=== PATIENT | male | born 1970 | race Caucasian/White ===

== ENCOUNTER → 2020-06-17 | Outpatient (CLI) | payer SELFPAY ==
[~2020-06-17] MED LIST: CATHETER FLUSH 10 ML SYR IV PRN; HOLD METFORMIN - RECEIVED CONTRAST 20 ML VIAL IV SCH; IOHEXOL 350 MG/ML 100 ML (OMNIPAQUE 350) VIAL IV ONE; LEVE500T99 PO; NS 100 ML (IVPB) BAG IV ONE
--- NOTE | 2020-06-17 17:49 | Diagnostic Imaging Report ---
PROCEDURE: CT chest with contrast only. TECHNIQUE: Multiple contiguous axial images were obtained through the chest after administration of intravenous contrast. Auto Exposure Controls were utilized during the CT exam to meet ALARA standards for radiation dose reduction. INDICATION: Tobacco abuse, cough. COMPARISON: None. FINDINGS: There is a solid suprahilar mass on the right measuring 48 x 44 mm. There is extension of lesion into the right upper lobe anteriorly and superiorly. Findings are concerning for a neoplasm. There is some volume loss of the right hemithorax. The left lung is clear. Paraseptal emphysema is noted. There is no significant pericardial effusion. No pleural effusion is seen. Visualized upper abdominal solid organs are unremarkable. Osseous structures are age appropriate. IMPRESSION: 1. Right upper lobe lung mass likely originating from the right suprahilar region concerning for neoplasm. Recommend percutaneous biopsy. 2. Not mentioned above, minimal subsegmental atelectasis in the right base. 3. Paraseptal emphysema. 4. No pleural effusion. Dictated by: Dictated on workstation # [id number]
== END ==
LOC: RAD 16:09
PROVIDERS: ATTEND Nurse Practitioner Community Health
DX: J43.8 Other emphysema (principal); R91.8 Other nonspecific abnormal finding of lung field; Z72.0 Tobacco use
CPT/HCPCS: 71260

== ENCOUNTER 2020-06-20 06:18 | Day surgery (SDC) | payer OTHER ==
[~2020-06-20] VITALS: Ht 180 cm; Wt 79.0 kg
[2020-06-20] VITALS (8 sets, daily range): BP systolic 120–142; BP diastolic 87–95
[~2020-06-20 06:18] MED LIST changes: -CATHETER FLUSH 10 ML SYR IV PRN; -HOLD METFORMIN - RECEIVED CONTRAST 20 ML VIAL IV SCH; -IOHEXOL 350 MG/ML 100 ML (OMNIPAQUE 350) VIAL IV ONE; -NS 100 ML (IVPB) BAG IV ONE
[2020-06-20] MEDS ORDERED: LIDOCAINE PF 2% 5 ML (XYLOCAINE) VIAL INJ ONE (06:19)
[2020-06-20] MEDS ORDERED: LIDOCAINE PF 1% 2 ML VIAL IJ ONE (06:19)
[2020-06-20] MEDS ORDERED: EPINEPHrine INJECTION 1 MG/ML AMP INJ ONE (06:19)
[2020-06-20] MEDS ORDERED: LIDOCAINE JELLY 2% 6 ML SYRINGE TOP ONE (06:19)
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
--- OUTSIDE RECORDS SUMMARY | 2020-06-20 06:22 | XMS REPORT | Continuity of Care Document ---
Author Organization Unknown Address Unknown Phone Unavailable Allergies Active Description Code Type Severity Reaction Onset Reported/Identified Relationship to Patient Clinical Status Yes No Allergy Information Available [id number] Drug Allergy Unknown N/A 020 Yes No Known Drug Allergies [id number] Drug Allergy Unknown N/A 06/18/2020 Medications There is no data. Problems Date Dx Coded Attending Type Code Diagnosis Diagnosed By 06/26/2008 FRANSISCA NEWTON APRN 780.39 convulsions [as sx] 06/26/2008 FRANSISCA NEWTON APRN 780.39 convulsions [as sx] 12/31/2008 FRANSISCA NEWTON APRN 345.90 EPILEPSY AND RECURRENT SEIZURES 12/31/2008 FRANSISCA NEWTON APRN 345.90 EPILEPSY AND RECURRENT SEIZURES 01/31/2009 FRANSISCA NEWTON APRN V58.69 taking high-risk medication 01/31/2009 FRANSISCA NEWTON APRN V58.69 taking high-risk medication 12/24/2010 FRANSISCA NEWTON APRN V17.49 FAM HX ASCVD (DISEASE) 12/24/2010 FRANSISCA NEWTON APRN V17.49 FAM HX ASCVD (DISEASE) 06/20/2020 FRANSISCA NEWTON Ot J43.8 OTHER EMPHYSEMA 06/20/2020 FRANSISCA NEWTON Ot R91.8 OTHER NONSPECIFIC ABNORMAL FINDING OF ANNIE 06/20/2020 FRANSISCA NEWTON Ot Z72.0 TOBACCO USE Procedures Code [place] [address] ROUT INE VENIPUNCTURE 01/10/2013 73262 CMP 01/10/[id number] GF R CALC (RESULT ONLY) 01/10/2013 40949 CBC 01/10/2013 51193 DILANTIN 01/10/2013 67257 ROUT INE VENIPUNCTURE 02/08/2014 42949 LIPI D PANEL 02/09/2014 51494 CBC 02/09/20143449929 GF R CALC (RESULT ONLY) 02/09/2014 36745 CMP 02/09/2014 19589 TSH 02/09/2014 Results Test Result Range CBC - 05/30/18 10:52 WHITE BLOOD CELL COUNT 6.4 Thousand/uL 3 .8-10.8 RED BLOOD CELL COUNT 4.34 Million/uL 4.2 0-5.80 HEMOGLOBIN 13.7 g/dL 13.2-17.1 HEMATOCRIT 40.1 % 38.5-50.0 MCV 92.4 fL 80.0-100.0 MCH 31.6 pg 27.0-33.0 MCHC 34.2 g/dL 32.0-36.0 RDW 14.1 % 11.0-15.0 PLATELET COUNT 290 Thousand/uL 140-400 MPV 9.2 fL 7.5-12.5 ABSOLUTE NEUTROPHILS 3680 cells/uL 1500- 7800 ABSOLUTE LYMPHOCYTES 1741 cells/uL 850-3 900 ABSOLUTE MONOCYTES 550 cells/uL 200-950 ABSOLUTE EOSINOPHILS 358 cells/uL 15-500 ABSOLUTE BASOPHILS 70 cells/uL 0-200 NEUTROPHILS 57.5 % NRG LYMPHOCYTES 27.2 % NRG MONOCYTES 8.6 % NRG EOSINOPHILS 5.6 % NRG BASOPHILS 1.1 % NRG COVID-19 IgG ANTIBODY - 06/10/20 18:23 SARS CoV 2 AB IGG NEGATIVE NRG CMP - 06/13/20 10:20 GLUCOSE 90 mg/dL 65-99 UREA NITROGEN (BUN) 12 mg/dL 7-25 CREATININE 0.98 mg/dL 0.70-1.33 eGFR NON-AFR. BANGLADESHI 89 mL/min/1.73m2 > OR = 60 eGFR 103 mL/min/1.73m2 > OR = 60 BUN/CREATININE RATIO NOT APPLICABLE (calc) 6-22 SODIUM 136 mmol/L 135-146 POTASSIUM 4.4 mmol/L 3.5-5.3 CHLORIDE 98 mmol/L 98-110 CARBON DIOXIDE 26 mmol/L 20-32 CALCIUM 9.6 mg/dL 8.6-10.3 PROTEIN, TOTAL 7.9 g/dL 6.1-8.1 ALBUMIN 4.0 g/dL 3.6-5.1 GLOBULIN 3.9 g/dL (calc) 1.9-3.7 ALBUMIN/GLOBULIN RATIO 1.0 (calc) 1.0-2. 5 BILIRUBIN, TOTAL 0.5 mg/dL 0.2-1.2 ALKALINE PHOSPHATASE 80 U/L 35-144 AST 12 U/L 10-35 ALT 9 U/L 9-46 CBC - 06/13/20 10:20 WHITE BLOOD CELL COUNT 12.4 Thousand/uL 3.8-10.8 RED BLOOD CELL COUNT 4.68 Million/uL 4.2 0-5.80 HEMOGLOBIN 13.3 g/dL 13.2-17.1 HEMATOCRIT 41.6 % 38.5-50.0 MCV 88.9 fL 80.0-100.0 MCH 28.4 pg 27.0-33.0 MCHC 32.0 g/dL 32.0-36.0 RDW 13.2 % 11.0-15.0 PLATELET COUNT 447 Thousand/uL 140-400 MPV 8.8 fL 7.5-12.5 ABSOLUTE NEUTROPHILS 9821 cells/uL 1500- 7800 ABSOLUTE LYMPHOCYTES 1364 cells/uL 850-3 900 ABSOLUTE MONOCYTES 893 cells/uL 200-950 ABSOLUTE EOSINOPHILS 260 cells/uL 15-500 ABSOLUTE BASOPHILS 62 cells/uL 0-200 NEUTROPHILS 79.2 % NRG LYMPHOCYTES 11.0 % NRG MONOCYTES 7.2 % NRG EOSINOPHILS 2.1 % NRG BASOPHILS 0.5 % NRG CRP - 06/13/20 10:20 C-REACTIVE PROTEIN 15.9 mg/L <8.0 Encounters ACCT No. Visit Date/Time Discharge Status Pt. Type Provider Facility Loc./Unit Complaint [id number] 02/08/2014 16:21:00 02/08/2014 23:59: 59 CLS Outpatient FRANSISCA NEWTON APRN [id number] 01/10/2013 13:44:00 01/10/2013 23:59: 59 CLS Outpatient FRANSISCA NEWTON APRN [id number] 06/13/2020 10:20:00 06/13/2020 23:59:5 9 CLS Outpatient FRANSISCA NEWTON APRN [facility] [id number] 06/13/2020 10:20:00 Document Registration [id number] 06/10/2020 16:20:00 Document Registration [id number] 05/30/2018 10:20:00 Document Registration [id number] 06/19/2020 05:33:00 020 10:43:00 DIS Outpatient MENDOZA NASSAR DO Via [facility] PREOP COUGH, DYSPNEA [id number] 06/25/2020 10:30:00 P EN Preadmit ROGE LOPEZ APRN Via [facility] RAD COUGH,DYSPNEA,HEMOPTYSIS,JONATHAN G MASS [id number] 06/20/2020 07:30:00 P EN Preadmit MENDOZA NASSAR DO Via [facility] ENDO COUGH,DYSPNEA [id number] 06/19/2020 06:50:[address] Outpatient MENDOZA NASSAR DO Via [facility] LABNPT [id number] 06/17/2020 16:09:[address] Outpatient FRANSISCA NEWTON Via [facility] RAD ABN CHEST XRAY
--- OUTSIDE RECORDS SUMMARY | 2020-06-20 06:22 | XMS REPORT ---
Author Author Gigi NEWTON Organization [facility] Address [address] [place] [address] Care Team Providers Care Makeup Artistry Instructor Name Role Phone FRANSISCA NEWTON Unavailable PROBLEMS Unknown Problems ALLERGIES No Information ENCOUNTERS Encounter Location Date Diagnosis [facility] [address] [facility] [id number] [address] [place] [address] 15 Feb, 2020 Seizures R56.9 and Viral ill ness B34.9 [place] [address] [facility] [id number] [address] [place] [address] Feb, [address] [id number] [address] May, [place] [address] [facility] [id number] [address] [place] [address] May, Unspecified convulsions R56. 9 ; High risk medication use Z79.899 and Lipid screening Z13.220 [place] [address] [facility] [id number] [address] [place] [address] Apr, [place] [address] [facility] [id number] [address] [place] [address] Aug, Unspecified convulsions R56. 9 [facility] [address] [facility] [id number] [address] [place] [address] Apr, [place] [address] [facility] [id number] [address] [place] [address] Jun, Seizures 780.39 and Back tanvi n 724.5 [place] [address] [facility] [id number] [address] [place] [address] Jun, Seizures 780.39 and Back tanvi n 724.5 [facility] [address] [id number] [address] [place] [address], [place] [address] Apr, Seizure 780.39 [facility] [address] [id number] [address] [place] [address], [place] [address] Feb, [facility] [address] [id number] [address] [place] [address], [place] [address] Feb, [facility] [address] [id number] [address] [place] [address], [place] [address] Feb, [facility] [address] [id number] [address] [place] [address], [place] [address] Feb, [facility] [address] [id number] [address] [place] [address], [place] [address] Feb, [facility] [address] [id number] [address] [place] [address], [place] [address] Feb, [facility] [address] [id number] [address] [place] [address], [place] [address] Feb, [facility] [address] [id number] [address] [place] [address], [place] [address] Jan, [facility] [address] [id number] [address] [place] [address], [place] [address] Jan, [facility] [address] [id number] [address] [place] [address], [place] [address] Nov, [facility] [address] [id number] [address] [place] [address], [place] [address] Nov, [facility] [address] [id number] [address] [place] [address], [place] [address] Feb, [facility] [address] [id number] [address] [place] [address], [place] [address] Jan, [facility] [address] [id number] [address] [place] [address], [place] [address] Jan, [facility] [address] [id number] [address] [place] [address] Apr, [facility] [address] [facility] [id number] [address] [place] [address] Dec, [facility] [address] [facility] [id number] [address] [place] [address] Nov, [facility] [address] [facility] [id number] [address] [place] [address] Nov, [facility] [address] [facility] [id number] [address] [place] [address] Nov, [facility] [address] [facility] [id number] [address] [place] [address] Dec, IMMUNIZATIONS No Known Immunizations SOCIAL HISTORY [...]
--- OUTSIDE RECORDS SUMMARY | 2020-06-20 06:22 | XMS REPORT ---
Author Author Gigi NEWTON [facility] eClinical[employer] Address Unknown Phone Unavailable Care Team Providers Care Retread Supervisor Name Role Phone FRANSISCA NEWTON CP Unavailable Allergies No Known Allergies Problems Problem Type Condition ICD-9 Code Onset Dates Condition Statu s Assessment Back pain 724.5 Active Assessment Seizures 780.39 Active Medications No Known Medications Procedures Procedure Coding System Code Date LIPID PANEL CPT-4 89573 Jun 25, 2015 COMPREHEN METABOLIC PANEL CPT-4 78837 Jun COMPLETE CBC W/AUTO DIFF WBC CPT-4 54407 Jun 25, 2015 X-RAY EXAM OF LOWER SPINE CPT-4 81809 Jun VENIPUNCT, ROUTINE* CPT-4 44670 Jun 25, 2015 Results Name Result Date Reference Range Unit Abnormali ty Flag ROUTINE VENIPUNCTURE CBC Summary Purpose eClinicalWorks Submission
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
--- OUTSIDE RECORDS SUMMARY | 2020-06-20 06:22 | XMS REPORT ---
Author Author Gigi NEWTON [facility] eClinicalWorks Address Unknown Phone Unavailable Care Team Providers Care Manager Lan Name Role Phone FRANSISCA NEWTON CP Unavailable Allergies, Adverse Reactions, Alerts Substance Reaction Event Type N.K.D.A. Info Not Available Non Drug Allergy Problems Problem Type Condition ICD-9 Code Onset Dates Condition Statu s Assessment Back pain 724.5 Active Assessment Seizures 780.39 Active Medications Medication Code System Code Instructions Start Date End Date Status Dosage Cristine [facility] [address]-17 500 MG Orally every 12 hrs Jun 24, 2015 1 tablet Procedures Procedure Coding System Code Date Office Visit, Est Pt., Level 3 CPT-4 34720 A 2014 Vital Signs Date/Time: Jun 24, 2015 Temperature 98.4 F Weight 162.2 lbs Height 73 in BMI 21.40 Index Blood Pressure Diastolic 82 mmHg Blood Pressure Systolic 108 mmHg Cardiac Monitoring Heart Rate 76 bpm Results No Known Results Summary Purpose eClinicalWorks Submission
--- OUTSIDE RECORDS SUMMARY | 2020-06-20 06:22 | XMS REPORT ---
Author Author Gigi NEWTON [facility] eClinicalWorks Address Unknown Phone Unavailable Care Team Providers Care Anesthesiology Teacher Name Role Phone FRANSISCA NEWTON CP Unavailable Allergies, Adverse Reactions, Alerts Substance Reaction Event Type N.K.D.A. Info Not Available Non Drug Allergy Problems Problem Type Condition Code Onset Dates Condition Statu s Assessment Unspecified convulsions R56.9 Acti ve Medications Medication Code System Code Instructions Start Date End Date Status Dosage Keppra [facility][NOTE 3] [address]-81 500 MG Orally every 12 hrs 1 tablet Procedures Procedure Coding System Code Date Office Visit, Est Pt., Level 2 CPT-[address] 2015 Vital Signs Date/Time: Aug 20, 2016 Cardiac Monitoring Heart Rate 70 bpm Weight 175 lbs Height 73 in BMI 23.09 Index Blood Pressure Diastolic 72 mmHg Blood Pressure Systolic 112 mmHg Results No Known Results Summary Purpose eClinicalWorks Submission
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
[2020-06-20] MEDS ORDERED: LACTATED RINGERS 1,000 ML IV STA (06:31)
[2020-06-20] MEDS ORDERED: LACTATED RINGERS 1,000 ML IV PRN (06:31)
[2020-06-20] MEDS ORDERED: SEVOFLURANE (ULTANE) 15 ML INHAL SOLN ONE ×2 (06:32→07:48)
[2020-06-20] MEDS ORDERED: LACTATED RINGERS 1,000 ML IV ONE (06:32)
[2020-06-20] MEDS ORDERED: fentaNYL INJECTION 100 MCG/2 ML AMP ONE (06:33)
[2020-06-20] MEDS ORDERED: LIDOCAINE PF 2% 5 ML (XYLOCAINE) VIAL ONE (06:33)
[2020-06-20] MEDS ORDERED: GLYCOPYRROLATE 0.2 MG/ML (ROBINUL) 2 ML VIAL ONE (06:33)
[2020-06-20] MEDS ORDERED: MIDAZOLAM 2 MG/2 ML (VERSED) VIAL ONE (06:33)
[2020-06-20] MEDS ORDERED: proPOfol 200 MG/20 ML (DIPRIVAN) VIAL IV ONE (06:33)
[2020-06-20] MEDS ORDERED: ONDANSETRON 4 MG/2 ML (SDV) Z0FRAN ONE (06:34)
[2020-06-20] MEDS ORDERED: ROCURONIUM 10 MG/ML 5 ML SYRINGE IV ONE (06:34)
[2020-06-20] MEDS ORDERED: NEOSTIGMINE 3 MG/3 ML VIAL ONE (06:34)
--- NOTE | 2020-06-20 07:25 | Progress Note-Pre Operative ---
Pre-Operative Progress Note H&P Reviewed The H&P was reviewed, patient examined and no changes noted. Date H&P Reviewed: Jun 20, 2020 Pre-Operative Diagnosis: MENDOZA Metzger DO Jun 20, 2020 07:25
--- NOTE | 2020-06-20 08:08 | Pulmonary Procedures ---
Pulmonary Procedures Date of Procedure Date of Service: Jun 20, 2020 Bronch Bronchoscopy with Fleuoscopy, Bilateral wash, brush of nanda, RUL BAL, transbronchial brush and transbronchial endobronchial forcep bx of RUL. EBUS with bx of station 10R lymph nodes Preop DX: mediastinal lymphadenopathy PostOP DX: same with endobronchial mass RUL pictures taken Complications: None Pt was sedated per anesthesia. Bronchoscopy was advanced through the ED tube and an anatomical undertaken down to the segmental bronchi bilaterally. RUL endobronchial lesions noted. Bronchoscopy with Fleuoscopy, Bilateral wash, brush of nanda, RUL BAL, transbronchial brush and transbronchial endobronchial forcep bx of RUL. EBUS with bx of station 10R lymph nodes were sampled via needle bx under US guidance. Pt tolerated procedure well. No complications noted. MENDOZA NASSAR DO Jun 20, 2020 08:08
--- NOTE | 2020-06-20 08:13 | Anesthesia-General Post-Op ---
General Patient Condition Mental Status/LOC: Same as Preop Cardiovascular: Satisfactory Nausea/Vomiting: Absent Respiratory: Satisfactory Pain: Controlled Complications: Absent Post Op Complications Complications None Follow Up Care/Instructions Patient Instructions None needed. Anesthesia/Patient Condition Patient Condition Patient is doing well, no complaints, stable vital signs, no apparent adverse anesthesia problems. No complications reported per nursing. BRIANNE AGUILA CRNA Jun 20, 2020 08:13
--- NOTE | 2020-06-20 08:47 | Diagnostic Imaging Report ---
INDICATION: Status post bronchoscopy. A right hilar mass with right upper lobe collapse is again noted and similar to CT 3 days earlier. No pneumothorax is identified, status post bronchoscopy. No effusion is seen. IMPRESSION: No evidence of pneumothorax, status post bronchoscopy. Dictated by: Dictated on workstation # [id number]
--- NOTE | 2020-06-20 08:50 | Diagnostic Imaging Report ---
Indication: Bronchoscopy IMPRESSION: 7.1 seconds fluoroscopy and 2 intraoperative digital images were used by Dr. Mcclellan in surgery during bronchoscopy. Dictated by: Dictated on workstation # [id number]
== END 2020-06-20 09:25 | disposition home or self-care (01) ==
LOC: ENDO 06:18
PROVIDERS: ATTEND Internal Medicine Critical Care Medicine
DX: C34.11 Malignant neoplasm of upper lobe, right bronchus or lung (principal); C77.1 Secondary and unspecified malignant neoplasm of intrathoracic lymph nodes; G40.909 Epilepsy, unspecified, not intractable, without status epilepticus; Z87.891 Personal history of nicotine dependence; Z79.899 Other long term (current) drug therapy
CPT/HCPCS: 71045; 76000; 87015; 87070; 87101; 87116; 87205; 87206; 88112; 88173; 88305; 88312; 88342; 88344; 94640

== ENCOUNTER → 2020-06-25 | Outpatient (CLI) | payer SELFPAY ==
--- NOTE | 2020-06-25 14:39 | Diagnostic Imaging Report ---
INDICATION: Right upper lobe lung mass. TECHNIQUE: Serum blood glucose level at the time of injection was 94 mg/dL. Patient was administered 15.5 mCi F-18 FDG intravenously in the left forearm and PET imaging was performed from the top of skull to mid thighs. Noncontrast CT was also performed for attenuation correction and anatomic correlation. COMPARISON: No prior PET/CT studies are available for comparison. Comparison is made with recent CT chest from 06/17/2020. FINDINGS: There is symmetric activity throughout the brain. Soft tissues of the neck are unremarkable. There is a large hypermetabolic mass arising from the right hilum measuring approximately 4.5 cm in size and demonstrates SUV max of around 20. This is contiguous with an even larger mass along the anterior right heart border which measures approximately 7.2 x 5.1 cm. This portion demonstrates SUV max approximately 22.7. There is some partial collapse of the right upper lobe. There is a small right effusion. The abdomen and pelvis demonstrate physiologic activity within the gastrointestinal and genitourinary tracts. No suspicious regions of hypermetabolism are identified. IMPRESSION: A large right hilar mass which is inseparable from a second large mass along the right heart border, perhaps in the anterior mediastinum, consistent with neoplasm. Left hilum is unremarkable. There is partial collapse of the right upper lobe as well as a small right pleural effusion. No abnormal regions in the abdomen or pelvis are identified. Dictated by: Dictated on workstation # [id number]
== END ==
LOC: RAD 08:32
PROVIDERS: ATTEND Nurse Practitioner Family
DX: J90 Pleural effusion, not elsewhere classified (principal); R91.8 Other nonspecific abnormal finding of lung field; R04.2 Hemoptysis
CPT/HCPCS: 78815; A9552

== ENCOUNTER → 2020-07-02 | Outpatient (CLI) | payer OTHER ==
[~2020-07-02] MED LIST changes: +RT-ALBUTEROL SULF 2.5 MG/3 ML PRE-MIX VIAL INH ONE
== END ==
LOC: RT 12:41
PROVIDERS: ATTEND Internal Medicine Critical Care Medicine
DX: C34.10 Malignant neoplasm of upper lobe, unspecified bronchus or lung (principal); Z20.828 Contact with and (suspected) exposure to other viral communicable diseases
CPT/HCPCS: 94060; 94726; 94729

== ENCOUNTER → 2020-07-16 | Outpatient (CLI) | payer OTHER ==
[~2020-07-16] MED LIST changes: +GADOBUTROL 7.5 MMOL/7.5 ML (GADAVIST) VIAL IV ONE; +HYDR-4226 PO; -RT-ALBUTEROL SULF 2.5 MG/3 ML PRE-MIX VIAL INH ONE
--- NOTE | 2020-07-16 10:22 | Diagnostic Imaging Report ---
CLINICAL INDICATION: Patient has lung cancer. EXAM: MRI of the brain performed without and with 7 cc of Gadavist IV contrast. Sequences include axial DWI, ADC map, axial gradient echo, axial T2, axial FLAIR, axial T1, axial T1 post IV contrast, coronal T1 fat-sat post IV contrast, and sagittal T1 post IV contrast. COMPARISON: None. FINDINGS: There is no evidence of acute cerebral infarct, intracranial hemorrhage, or gross mass effect. There is no abnormal IV contrast enhancement. Jose cisterna magna is noted. The brain parenchymal volume appears appropriate for patient's age. There are several focal areas of high T2 signal white matter changes involving the white matter of both cerebral hemispheres, likely representing mild chronic small vessel ischemic disease. There is normal nolasco-white matter distinction. There is no significant midline shift or herniation. The [place] of [place] vascular structures show no gross abnormality as visualized. The pituitary gland, sella, and suprasellar regions are unremarkable as visualized. There is no evidence of hydrocephalus. The basal cisterns are unremarkable. The skull, extracranial soft tissue, and orbits are unremarkable. The paranasal sinuses are unremarkable. The temporal bones show no significant abnormality. IMPRESSION: Age-related brain parenchymal changes with no evidence of an acute intracranial process or metastatic disease. Dictated by: Dictated on workstation # [id number]
== END ==
LOC: RAD 08:45
PROVIDERS: ATTEND Internal Medicine Hematology & Oncology
DX: C34.11 Malignant neoplasm of upper lobe, right bronchus or lung (principal); G93.89 Other specified disorders of brain
CPT/HCPCS: 70553

== ENCOUNTER 2020-07-17 05:44 | Outpatient (CLI) | payer OTHER ==
[~2020-07-17] VITALS: Ht 185.5 cm; Wt 79.5 kg
[~2020-07-17 05:44] MED LIST changes: -GADOBUTROL 7.5 MMOL/7.5 ML (GADAVIST) VIAL IV ONE; -HYDR-4226 PO
[2020-07-18] MEDS ORDERED: HYDR-4226 PO (11:06)
== END 2020-07-17 11:44 | disposition home or self-care (01) ==
LOC: PREOP 05:44
PROVIDERS: ATTEND Surgery
DX: Z01.818 Encounter for other preprocedural examination (principal)

== ENCOUNTER 2020-07-18 09:53 | Day surgery (SDC) | payer OTHER ==
[2020-07-18] VITALS (8 sets, daily range): BP systolic 125–143; BP diastolic 86–95
[~2020-07-18] VITALS: Ht 185.5 cm; Wt 79.5 kg
[2020-07-18] MEDS ORDERED: PROPOFOL INJECTION 50 ML IV ONE (10:13)
[2020-07-18] MEDS ORDERED: MIDAZOLAM 2 MG/2 ML (VERSED) VIAL ONE (10:14)
[2020-07-18] MEDS ORDERED: 0.9% SODIUM CHLORIDE PF INJ 20 ML VIAL ONE (10:21)
[2020-07-18] MEDS ORDERED: HEParin (CENTRAL IV FLUSH) 500 UNIT/5 ML SYR ONE (10:21)
[2020-07-18] MEDS ORDERED: BUP/EPI 0.25% 1:200,000 (MARCAINE) 30 ML VIAL ONE (10:22)
--- NOTE | 2020-07-18 10:26 | Progress Note-Pre Operative ---
Pre-Operative Progress Note H&P Reviewed The H&P was reviewed, patient examined and no changes noted. Time Seen by Provider: 09:52 Date H&P Reviewed: Jul 18, 2020 Time H&P Reviewed: 09:53 Pre-Operative Diagnosis: Lung CA, Venous Insufficiency DEANNA DEGROOT DO Jul 18, 2020 10:26
[2020-07-18] MEDS ORDERED: LACTATED RINGERS 1,000 ML IV PRN (10:27)
[2020-07-18] MEDS ORDERED: ceFAZolin 2 GM IV Premixed 50 ML IV ONE (10:30)
--- NOTE | 2020-07-18 11:05 | Progress Note-Post Operative ---
Post-Operative Progess Note Surgeon (s)/Family Counselor (s) Surgeon DEANNA DEGROOT DO Family Counselor: EVERARDO Chan Pre-Operative Diagnosis Lung CA, Venous Insufficiency Post-Operative Diagnosis same Procedure & Operative Findings Date of Procedure 07/18/20 Procedure Performed/Findings PROCEDURE: [Left] subclavian port placement using ultrasound guidance. COMPLICATIONS: None. INDICATIONS: The patient is a 50 year old male [with Lung CA and venous insufficiency]. Patient understands the risks and benefits of port placement and wished to proceed with the procedure. Consent was signed on the chart. PROCEDURE: The patient was taken to the operating suite, was prepped and draped in the sterile fashion. A surgical pause was performed. Local anesthetic was infiltrated above left chest wall and towards the clavicle. Next using an 18 gauge finder needle with negative inspiration the subclavian vein was accessed on first attempt and dark nonpulsatile blood was withdrawn. The wire was inserted. Fluoroscopy assured proper placement. The needle was removed. The wire was then secured and a pocket was created. A [#11] blade scalpel was used to make an incision over the [left] chest and a stab incision at the guidewire. Cautery was used to dissect down to the pectoral fascia. A pocket was created with blunt dissection. The dilator sheath was then advanced over the wire with Seldinger technique and checked with fluoroscopy and catheter was tunneled into the pocket. The Groshong catheter was inserted through the sheath and the sheath and the Groshong wire were removed. Fluoroscopy was used to cut to length and this was then attached to the port which was then placed within the pocket. The port was then sutured in place with 3-0 Prolene. The port was then accessed without difficulty. It was then flushed with saline and then heparin. The subcutaneous tissues were then reapproximated using 3-0 Vicryl. Finally skin was close with three 4-0 undyed Monocryl subcuticular stitches. The areas were then washed and dried. Skin Affix was placed over incision. The insertion point of the neck Skin Affix was placed over the incision. The patient tolerated the procedure well without complication and was taken to recovery room in stable condition. Anesthesia Type IV sedation by [employer] Estimated Blood Loss Estimated blood loss (mL): scant Specimens/Packing Specimens Removed none DEANNA DEGROOT DO Jul 18, 2020 11:05
[2020-07-18] MEDS ORDERED: HYDR-4226 PO (11:06)
--- NOTE | 2020-07-18 11:07 | Discharge Inst-Surgical ---
Discharge Inst-Surgical Depart Medication/Instructions New, Converted or Re-Newed RX: RX Given to Pt/Family Patient Instructions Follow up Appt: Make appointment for 1 week. [phone] Instructions: No strenuous activity. May shower in 24 hours, no tub bath or soaking. Use incentive spirometer at home as directed. No Smoking Skin/Wound Care: May remove bandages in am. You need to leave the Dermabond on incision it will fall off on it's own. Symptoms to Report: Appetite Changes, Extremity Discoloration, Numbness/Tingling, Swelling Increased, Bleeding Excessive, Eyesight Changes, Pain Increased, Urine Color Leora nge, Constipation(Persistent), Fever over 101 degree F, Pain/Pressure in chest, Urinating Difficulty, Cough Up/Vomit Blood, Heart Beat Irreg/Pounding, Pain/Pressure in jaw, Cramps in feet or legs, Lightheadedness, Pain/Pressure in shoulder, Diarrhea(Persistent), Memory Changes Suddenly, Questions/Concerns, Weight gain consecutive days, Dizziness/Fainting, Nausea/Vomiting, Shortness of Breath, Weight gain over 2 pounds If questions or concerns contact your physician Or seek help at emergency department. Activity Activity as Tolerated: Yes Activity Instructions: Avoid Stress to Incision Driving Instructions: No Driving/Refer to Dr. Nesbitt Discharge Diet: No Restrictions Diet After 24 Hours: Clear Liquid if Nauseous If Any Problems/Questions/Issu: Contact Your Physician, Go to Emergency Room Skin/Wound Care Infection Signs and Symptoms: Increased Redness, Foul Odor of Wound, Increased Drainage, Skin Itchy or Has a Rash, Increased Swelling, Temperature Above 101 F Bathing Instructions: Shower Stitches/Maxwell/Dermabond Dis: Dermabond Ice Pack: Ice On and Off Site DEANNA DEGROOT DO Jul 18, 2020 11:07
[2020-07-18] MEDS ORDERED: MEPERIDINE (DEMEROL) INJ 50 MG/ML IVP ONE (11:15)
[2020-07-18] MEDS ORDERED: ONDANSETRON 4 MG/2 ML (SDV) Z0FRAN IVP PRN (11:15)
[2020-07-18] MEDS ORDERED: morphine INJ 10 MG/ML 1ML (SYR OR VIAL) IVP ONE (11:15)
--- NOTE | 2020-07-18 11:51 | Diagnostic Imaging Report ---
INDICATION: Fluoroscopy during Groshong catheter placement. Fluoroscopy was provided in the OR during port placement. 4 seconds of fluoroscopic time was utilized. 3 images were obtained demonstrating a left subclavian port with tip overlying the SVC right atrial junction. IMPRESSION: Fluoroscopy during port placement. Dictated by: Dictated on workstation # [id number]
== END 2020-07-18 12:20 | disposition home or self-care (01) ==
LOC: SDC 09:53
PROVIDERS: ATTEND Surgery
DX: C34.11 Malignant neoplasm of upper lobe, right bronchus or lung (principal); I87.2 Venous insufficiency (chronic) (peripheral); Z11.2 Encounter for screening for other bacterial diseases; F17.220 Nicotine dependence, chewing tobacco, uncomplicated; G47.33 Obstructive sleep apnea (adult) (pediatric); G40.909 Epilepsy, unspecified, not intractable, without status epilepticus; Z79.899 Other long term (current) drug therapy
CPT/HCPCS: 36561; 76000; 87081; C1788

== ENCOUNTER → 2020-09-23 | Outpatient (CLI) | payer OTHER ==
[~2020-09-23] MED LIST changes: +HOLD METFORMIN - RECEIVED CONTRAST 20 ML VIAL IV SCH; +HYDR-4226 PO; +IOHEXOL 350 MG/ML 100 ML (OMNIPAQUE 350) VIAL IV ONE; +NS 100 ML (IVPB) BAG IV ONE
--- NOTE | 2020-09-23 09:13 | Diagnostic Imaging Report ---
EXAMINATION: CT Chest with intravenous contrast. TECHNIQUE: Multiple contiguous axial images were obtained through the chest after the uneventful administration of intravenous contrast. All CT scans use one or more of the following dose optimizing techniques: automated exposure control, MA and/or KvP adjustment based on a patient size and exam type, or iterative reconstruction. HISTORY: Lung cancer. COMPARISON: 06/17/2020. FINDINGS: The right hilar mass has significantly decreased in size now measuring 2.0 x 2.0 cm, previously 4.5 x 4.9 cm. There has been reexpansion of the right upper lobe. In the medial anterior segment of the right upper lobe, a second mass has also decreased in size measuring 3.5 x 2.8 cm, previously 7.2 x 5.0 cm. The lungs are emphysematous. No new nodules or masses are seen. No pleural effusion. No pneumothorax. A juxtadiaphragmatic nodule in the left lower lobe measuring 11 mm is unchanged. There is no axillary or supraclavicular lymphadenopathy. There is no mediastinal lymphadenopathy. Left-sided portacatheter is present. Heart size is normal. There are no coronary artery calcifications. No pericardial effusion. Aorta is normal in caliber. Limited views of the upper abdomen are unremarkable. There are no suspicious osseus lesions. IMPRESSION: Marked decrease in size of the previously large two right upper lobe masses is present. There has been reexpansion of the right upper lobe. No new disease is seen. Dictated by: Dictated on workstation # [id number]
== END ==
LOC: RAD 08:45
PROVIDERS: ATTEND Internal Medicine Hematology & Oncology
DX: C34.11 Malignant neoplasm of upper lobe, right bronchus or lung (principal); Z85.118 Personal history of other malignant neoplasm of bronchus and lung
CPT/HCPCS: 71260

== ENCOUNTER 2020-09-26 08:55 | Outpatient (RCR) | payer OTHER ==
[2020-07-16 08:40] LABS: BASOPHILS # (AUTO) 0.1 10^3/uL (0.0-0.1); BASOPHILS % (AUTO) 1 % (0-10); EOSINOPHILS # (AUTO) 0.3 10^3/uL (0.0-0.3); EOSINOPHILS % (AUTO) 4 % (0-10); HEMATOCRIT 38 % (40-54); HEMOGLOBIN 12.2 G/DL (13.3-17.7); LYMPHOCYTES # (AUTO) 1.2 X 10^3 (1.0-4.0); LYMPHOCYTES % (AUTO) 13 % (12-44); MEAN CORPUSCULAR HEMOGLOBIN 29 PG (25-34); MEAN CORPUSCULAR HGB CONC 32 G/DL (32-36); MEAN CORPUSCULAR VOLUME 89 FL (80-99); MEAN PLATELET VOLUME 8.3 FL (7.4-10.4); MONOCYTES # (AUTO) 0.9 X 10^3 (0.0-1.0); MONOCYTES % (AUTO) 10 % (0-12); NEUTROPHILS # (AUTO) 6.8 X 10^3 (1.8-7.8); NEUTROPHILS % (AUTO) 73 % (42-75); PLATELET COUNT 416 10^3/uL (130-400); WHITE BLOOD COUNT 9.2 10^3/uL (4.3-11.0)
[2020-07-16 09:04] LABS: ALANINE AMINOTRANSFERASE 11 U/L (0-55); ALBUMIN 4.1 GM/DL (3.2-4.5); ALKALINE PHOSPHATASE 82 U/L (40-136); BILIRUBIN,TOTAL 0.3 MG/DL (0.1-1.0); BUN/CREATININE RATIO 15; CALCIUM 9.4 MG/DL (8.5-10.1); CARBON DIOXIDE 27 MMOL/L (21-32); CHLORIDE 104 MMOL/L (98-107); CREATININE SERUM 0.96 MG/DL (0.60-1.30); GFR ESTIMATED > 60; GLUCOSE 96 MG/DL (70-105); POTASSIUM 4.2 MMOL/L (3.6-5.0); SODIUM 139 MMOL/L (135-145)
[2020-07-29 11:49] LABS: BASOPHILS % (AUTO) 0 % (0-10); EOSINOPHILS # (AUTO) 0.2 10^3/uL (0.0-0.3); EOSINOPHILS % (AUTO) 2 % (0-10); HEMATOCRIT 41 % (40-54); HEMOGLOBIN 13.6 G/DL (13.3-17.7); LYMPHOCYTES % (AUTO) 10 % (12-44); MEAN CORPUSCULAR HEMOGLOBIN 29 PG (25-34); MEAN CORPUSCULAR HGB CONC 33 G/DL (32-36); MEAN CORPUSCULAR VOLUME 87 FL (80-99); MEAN PLATELET VOLUME 8.1 FL (7.4-10.4); MONOCYTES # (AUTO) 0.2 X 10^3 (0.0-1.0); MONOCYTES % (AUTO) 2 % (0-12); NEUTROPHILS # (AUTO) 8.7 X 10^3 (1.8-7.8); NEUTROPHILS % (AUTO) 87 % (42-75); PLATELET COUNT 458 10^3/uL (130-400)
[2020-07-29 12:03] LABS: ALANINE AMINOTRANSFERASE 28 U/L (0-55); ALBUMIN 4.3 GM/DL (3.2-4.5); ALKALINE PHOSPHATASE 79 U/L (40-136); BILIRUBIN,TOTAL 0.5 MG/DL (0.1-1.0); BUN/CREATININE RATIO 17; CALCIUM 9.8 MG/DL (8.5-10.1); CARBON DIOXIDE 25 MMOL/L (21-32); CHLORIDE 99 MMOL/L (98-107); CREATININE SERUM 0.99 MG/DL (0.60-1.30); GFR ESTIMATED > 60; GLUCOSE 96 MG/DL (70-105); POTASSIUM 4.6 MMOL/L (3.6-5.0); SODIUM 137 MMOL/L (135-145); TOTAL PROTEIN 8.1 GM/DL (6.4-8.2)
[2020-08-06 10:31] LABS: BASOPHILS % (AUTO) 0 % (0-10); EOSINOPHILS # (AUTO) 0.3 10^3/uL (0.0-0.3); EOSINOPHILS % (AUTO) 4 % (0-10); HEMATOCRIT 38 % (40-54); HEMOGLOBIN 12.1 g/dL (13.3-17.7); LYMPHOCYTES # (AUTO) 0.6 10^3/uL (1.0-4.0); LYMPHOCYTES % (AUTO) 10 % (12-44); MEAN CORPUSCULAR HEMOGLOBIN 28 pg (25-34); MEAN CORPUSCULAR HGB CONC 32 g/dL (32-36); MEAN CORPUSCULAR VOLUME 90 fL (80-99); MEAN PLATELET VOLUME 8.5 fL (9.0-12.2); MONOCYTES # (AUTO) 0.6 10^3/uL (0.0-1.0); MONOCYTES % (AUTO) 9 % (0-12); NEUTROPHILS # (AUTO) 4.6 10^3/uL (1.8-7.8); NEUTROPHILS % (AUTO) 76 % (42-75); PLATELET COUNT 194 10^3/uL (130-400); WHITE BLOOD COUNT 6.1 10^3/uL (4.3-11.0)
[2020-08-06 10:55] LABS: ALANINE AMINOTRANSFERASE 15 U/L (0-55); ALKALINE PHOSPHATASE 86 U/L (40-136); BILIRUBIN,TOTAL 0.4 MG/DL (0.1-1.0); BUN/CREATININE RATIO 16; CALCIUM 9.2 MG/DL (8.5-10.1); CARBON DIOXIDE 25 MMOL/L (21-32); CHLORIDE 103 MMOL/L (98-107); CREATININE SERUM 0.93 MG/DL (0.60-1.30); GFR ESTIMATED > 60; GLUCOSE 93 MG/DL (70-105); POTASSIUM 4.7 MMOL/L (3.6-5.0); SODIUM 138 MMOL/L (135-145); TOTAL PROTEIN 7.4 GM/DL (6.4-8.2)
[2020-08-15 08:47] LABS: BASOPHILS # (AUTO) 0.1 10^3/uL (0.0-0.1); BASOPHILS % (AUTO) 2 % (0-10); EOSINOPHILS # (AUTO) 0.3 10^3/uL (0.0-0.3); EOSINOPHILS % (AUTO) 8 % (0-10); HEMATOCRIT 35 % (40-54); HEMOGLOBIN 11.2 g/dL (13.3-17.7); LYMPHOCYTES # (AUTO) 0.5 10^3/uL (1.0-4.0); LYMPHOCYTES % (AUTO) 15 % (12-44); MEAN CORPUSCULAR HEMOGLOBIN 28 pg (25-34); MEAN CORPUSCULAR HGB CONC 32 g/dL (32-36); MEAN CORPUSCULAR VOLUME 89 fL (80-99); MEAN PLATELET VOLUME 8.1 fL (9.0-12.2); MONOCYTES # (AUTO) 0.5 10^3/uL (0.0-1.0); MONOCYTES % (AUTO) 16 % (0-12); NEUTROPHILS % (AUTO) 59 % (42-75); PLATELET COUNT 354 10^3/uL (130-400); WHITE BLOOD COUNT 3.3 10^3/uL (4.3-11.0)
[2020-08-15 09:11] LABS: ALANINE AMINOTRANSFERASE 23 U/L (0-55); ALBUMIN 3.9 GM/DL (3.2-4.5); ALKALINE PHOSPHATASE 76 U/L (40-136); BILIRUBIN,TOTAL 0.3 MG/DL (0.1-1.0); BUN/CREATININE RATIO 18; CALCIUM 8.7 MG/DL (8.5-10.1); CARBON DIOXIDE 22 MMOL/L (21-32); CHLORIDE 106 MMOL/L (98-107); CREATININE SERUM 0.95 MG/DL (0.60-1.30); GFR ESTIMATED > 60; GLUCOSE 88 MG/DL (70-105); MAGNESIUM 2.6 MG/DL (1.6-2.4); POTASSIUM 4.2 MMOL/L (3.6-5.0); SODIUM 141 MMOL/L (135-145); TOTAL PROTEIN 6.8 GM/DL (6.4-8.2)
[2020-08-20 08:56] LABS: BASOPHILS # (AUTO) 0.1 10^3/uL (0.0-0.1); BASOPHILS % (AUTO) 2 % (0-10); EOSINOPHILS # (AUTO) 0.3 10^3/uL (0.0-0.3); EOSINOPHILS % (AUTO) 8 % (0-10); HEMATOCRIT 40 % (40-54); HEMOGLOBIN 13.2 g/dL (13.3-17.7); LYMPHOCYTES # (AUTO) 0.4 10^3/uL (1.0-4.0); LYMPHOCYTES % (AUTO) 12 % (12-44); MEAN CORPUSCULAR HEMOGLOBIN 29 pg (25-34); MEAN CORPUSCULAR HGB CONC 33 g/dL (32-36); MEAN CORPUSCULAR VOLUME 89 fL (80-99); MEAN PLATELET VOLUME 8.4 fL (9.0-12.2); MONOCYTES # (AUTO) 0.2 10^3/uL (0.0-1.0); MONOCYTES % (AUTO) 6 % (0-12); NEUTROPHILS # (AUTO) 2.4 10^3/uL (1.8-7.8); NEUTROPHILS % (AUTO) 73 % (42-75); PLATELET COUNT 240 10^3/uL (130-400); WHITE BLOOD COUNT 3.3 10^3/uL (4.3-11.0)
[2020-08-20 09:18] LABS: BUN/CREATININE RATIO 15; CALCIUM 9.5 MG/DL (8.5-10.1); CARBON DIOXIDE 27 MMOL/L (21-32); CHLORIDE 101 MMOL/L (98-107); CREATININE SERUM 0.91 MG/DL (0.60-1.30); GFR ESTIMATED > 60; GLUCOSE 98 MG/DL (70-105); POTASSIUM 4.8 MMOL/L (3.6-5.0); SODIUM 139 MMOL/L (135-145)
[2020-08-29 11:23] LABS: BASOPHILS % (AUTO) 1 % (0-10); EOSINOPHILS # (AUTO) 0.2 10^3/uL (0.0-0.3); EOSINOPHILS % (AUTO) 6 % (0-10); HEMATOCRIT 37 % (40-54); LYMPHOCYTES # (AUTO) 0.4 10^3/uL (1.0-4.0); LYMPHOCYTES % (AUTO) 10 % (12-44); MEAN CORPUSCULAR HEMOGLOBIN 29 pg (25-34); MEAN CORPUSCULAR HGB CONC 33 g/dL (32-36); MEAN CORPUSCULAR VOLUME 89 fL (80-99); MEAN PLATELET VOLUME 8.8 fL (9.0-12.2); MONOCYTES # (AUTO) 0.7 10^3/uL (0.0-1.0); MONOCYTES % (AUTO) 20 % (0-12); NEUTROPHILS # (AUTO) 2.2 10^3/uL (1.8-7.8); NEUTROPHILS % (AUTO) 63 % (42-75); PLATELET COUNT 141 10^3/uL (130-400); WHITE BLOOD COUNT 3.5 10^3/uL (4.3-11.0)
[2020-08-29 11:38] LABS: BUN/CREATININE RATIO 16; CARBON DIOXIDE 22 MMOL/L (21-32); CHLORIDE 106 MMOL/L (98-107); CREATININE SERUM 0.87 MG/DL (0.60-1.30); GFR ESTIMATED > 60; GLUCOSE 82 MG/DL (70-105); POTASSIUM 4.1 MMOL/L (3.6-5.0); SODIUM 138 MMOL/L (135-145)
[2020-09-05 09:03] LABS: BASOPHILS % (AUTO) 1 % (0-10); EOSINOPHILS # (AUTO) 0.3 10^3/uL (0.0-0.3); EOSINOPHILS % (AUTO) 8 % (0-10); HEMATOCRIT 36 % (40-54); HEMOGLOBIN 11.6 g/dL (13.3-17.7); LYMPHOCYTES # (AUTO) 0.4 10^3/uL (1.0-4.0); LYMPHOCYTES % (AUTO) 10 % (12-44); MEAN CORPUSCULAR HEMOGLOBIN 29 pg (25-34); MEAN CORPUSCULAR HGB CONC 32 g/dL (32-36); MEAN CORPUSCULAR VOLUME 89 fL (80-99); MEAN PLATELET VOLUME 8.1 fL (9.0-12.2); MONOCYTES # (AUTO) 0.6 10^3/uL (0.0-1.0); MONOCYTES % (AUTO) 19 % (0-12); NEUTROPHILS # (AUTO) 2.1 10^3/uL (1.8-7.8); NEUTROPHILS % (AUTO) 62 % (42-75); PLATELET COUNT 239 10^3/uL (130-400); WHITE BLOOD COUNT 3.4 10^3/uL (4.3-11.0)
[2020-09-05 09:21] LABS: ALANINE AMINOTRANSFERASE 15 U/L (0-55); ALBUMIN 4.1 GM/DL (3.2-4.5); ALKALINE PHOSPHATASE 65 U/L (40-136); BILIRUBIN,TOTAL 0.4 MG/DL (0.1-1.0); BUN/CREATININE RATIO 18; CALCIUM 9.4 MG/DL (8.5-10.1); CARBON DIOXIDE 25 MMOL/L (21-32); CHLORIDE 104 MMOL/L (98-107); CREATININE SERUM 0.93 MG/DL (0.60-1.30); GFR ESTIMATED > 60; GLUCOSE 90 MG/DL (70-105); POTASSIUM 4.3 MMOL/L (3.6-5.0); SODIUM 141 MMOL/L (135-145); TOTAL PROTEIN 7.1 GM/DL (6.4-8.2)
[2020-09-12 10:56] LABS: BASOPHILS % (AUTO) 1 % (0-10); EOSINOPHILS # (AUTO) 0.2 10^3/uL (0.0-0.3); EOSINOPHILS % (AUTO) 7 % (0-10); HEMATOCRIT 36 % (40-54); HEMOGLOBIN 11.9 g/dL (13.3-17.7); LYMPHOCYTES # (AUTO) 0.3 10^3/uL (1.0-4.0); LYMPHOCYTES % (AUTO) 14 % (12-44); MEAN CORPUSCULAR HEMOGLOBIN 29 pg (25-34); MEAN CORPUSCULAR HGB CONC 33 g/dL (32-36); MEAN CORPUSCULAR VOLUME 88 fL (80-99); MEAN PLATELET VOLUME 8.7 fL (9.0-12.2); MONOCYTES # (AUTO) 0.2 10^3/uL (0.0-1.0); MONOCYTES % (AUTO) 11 % (0-12); NEUTROPHILS # (AUTO) 1.5 10^3/uL (1.8-7.8); NEUTROPHILS % (AUTO) 66 % (42-75); PLATELET COUNT 151 10^3/uL (130-400); WHITE BLOOD COUNT 2.2 10^3/uL (4.3-11.0)
[2020-09-12 11:15] LABS: BUN/CREATININE RATIO 15; CALCIUM 9.3 MG/DL (8.5-10.1); CARBON DIOXIDE 24 MMOL/L (21-32); CHLORIDE 103 MMOL/L (98-107); CREATININE SERUM 0.95 MG/DL (0.60-1.30); GFR ESTIMATED > 60; GLUCOSE 112 MG/DL (70-105); POTASSIUM 4.7 MMOL/L (3.6-5.0); SODIUM 138 MMOL/L (135-145)
[2020-09-19 09:32] LABS: BASOPHILS % (AUTO) 0 % (0-10); EOSINOPHILS # (AUTO) 0.1 10^3/uL (0.0-0.3); EOSINOPHILS % (AUTO) 2 % (0-10); HEMATOCRIT 34 % (40-54); HEMOGLOBIN 11.3 g/dL (13.3-17.7); LYMPHOCYTES # (AUTO) 0.4 10^3/uL (1.0-4.0); LYMPHOCYTES % (AUTO) 9 % (12-44); MEAN CORPUSCULAR HEMOGLOBIN 30 pg (25-34); MEAN CORPUSCULAR HGB CONC 33 g/dL (32-36); MEAN CORPUSCULAR VOLUME 89 fL (80-99); MEAN PLATELET VOLUME 8.5 fL (9.0-12.2); MONOCYTES # (AUTO) 0.8 10^3/uL (0.0-1.0); MONOCYTES % (AUTO) 17 % (0-12); NEUTROPHILS # (AUTO) 3.2 10^3/uL (1.8-7.8); NEUTROPHILS % (AUTO) 71 % (42-75); PLATELET COUNT 183 10^3/uL (130-400); WHITE BLOOD COUNT 4.4 10^3/uL (4.3-11.0)
[2020-09-19 09:50] LABS: BUN/CREATININE RATIO 23; CALCIUM 9.2 MG/DL (8.5-10.1); CARBON DIOXIDE 24 MMOL/L (21-32); CHLORIDE 104 MMOL/L (98-107); GFR ESTIMATED > 60; GLUCOSE 98 MG/DL (70-105); POTASSIUM 4.6 MMOL/L (3.6-5.0); SODIUM 139 MMOL/L (135-145)
[~2020-09-26] VITALS: Ht 180.3 cm; Wt 78.9 kg
[~2020-09-26 08:55] MED LIST changes: +CISPLATIN IV SCH; +CYANOCOBALAMIN INJ 1000 MCG/ML (CANCER CENTER) ONE; +FAMOTIDINE 20MG/2ML IV (CANCER CTR) IV SCH; +FOSAPREPITANT (CANCER CENTER) 150 MG in NS (IVPB) CANCER CENTER ONLY 150 ML IV SCH; -HOLD METFORMIN - RECEIVED CONTRAST 20 ML VIAL IV SCH; -IOHEXOL 350 MG/ML 100 ML (OMNIPAQUE 350) VIAL IV ONE; +MANNITOL IV SCH; -NS 100 ML (IVPB) BAG IV ONE; +NS IV 1000 ML (CANCER CTR) IV SCH; +ONDANSETRON 8 MG, DEXAMETHASONE 4 MG/NS 50 ML IVPB (Cancer Ctr) IV SCH; +PEMETREXED DISODIUM 1,000 MG in NS (IVPB) CANCER CENTER 100 ML IV SCH; +[UNRECOGNIZED DRUG - OTHER] IV SCH; +diphenhydrAMINE 25 MG TAB (BENADRYL) CANCER CENTER PO SCH
[2020-09-26 09:18] LABS: BASOPHILS % (AUTO) 1 % (0-10); EOSINOPHILS # (AUTO) 0.1 10^3/uL (0.0-0.3); EOSINOPHILS % (AUTO) 4 % (0-10); HEMATOCRIT 34 % (40-54); HEMOGLOBIN 11.6 g/dL (13.3-17.7); LYMPHOCYTES # (AUTO) 0.4 10^3/uL (1.0-4.0); LYMPHOCYTES % (AUTO) 13 % (12-44); MEAN CORPUSCULAR HEMOGLOBIN 30 pg (25-34); MEAN CORPUSCULAR HGB CONC 34 g/dL (32-36); MEAN CORPUSCULAR VOLUME 90 fL (80-99); MEAN PLATELET VOLUME 8.2 fL (9.0-12.2); MONOCYTES # (AUTO) 0.8 10^3/uL (0.0-1.0); MONOCYTES % (AUTO) 25 % (0-12); NEUTROPHILS # (AUTO) 1.7 10^3/uL (1.8-7.8); NEUTROPHILS % (AUTO) 56 % (42-75); PLATELET COUNT 250 10^3/uL (130-400); WHITE BLOOD COUNT 3.1 10^3/uL (4.3-11.0)
[2020-09-26 09:40] LABS: ALANINE AMINOTRANSFERASE 19 U/L (0-55); ALBUMIN 4.2 GM/DL (3.2-4.5); ALKALINE PHOSPHATASE 69 U/L (40-136); BILIRUBIN,TOTAL 0.3 MG/DL (0.1-1.0); BUN/CREATININE RATIO 15; CALCIUM 9.1 MG/DL (8.5-10.1); CARBON DIOXIDE 25 MMOL/L (21-32); CHLORIDE 104 MMOL/L (98-107); CREATININE SERUM 0.87 MG/DL (0.60-1.30); GFR ESTIMATED > 60; GLUCOSE 89 MG/DL (70-105); POTASSIUM 4.2 MMOL/L (3.6-5.0); SODIUM 139 MMOL/L (135-145)
== END 2020-10-07 | disposition home or self-care (01) ==
LOC: ONC 08:55
PROVIDERS: ATTEND Internal Medicine Hematology & Oncology
DX: C34.11 Malignant neoplasm of upper lobe, right bronchus or lung (principal); F10.11 Alcohol abuse, in remission; Z87.891 Personal history of nicotine dependence; Z86.69 Personal history of other diseases of the nervous system and sense organs
CPT/HCPCS: 36591; 77290; 77295; 77300; 77307; 77332; 77334; 77336; 77417; 77470; 80048; 80053; 82378; 83735; 85025; 96367; 96372; 96375; 96411; 96413; 99205; 99214; 99215

== ENCOUNTER 2020-10-30 12:45 | Outpatient (RCR) | payer OTHER ==
[2020-10-16 13:48] LABS: BASOPHILS # (AUTO) 0.1 10^3/uL (0.0-0.1); BASOPHILS % (AUTO) 2 % (0-10); EOSINOPHILS # (AUTO) 0.2 10^3/uL (0.0-0.3); EOSINOPHILS % (AUTO) 5 % (0-10); HEMATOCRIT 34 % (40-54); HEMOGLOBIN 11.5 g/dL (13.3-17.7); LYMPHOCYTES # (AUTO) 0.5 10^3/uL (1.0-4.0); LYMPHOCYTES % (AUTO) 14 % (12-44); MEAN CORPUSCULAR HEMOGLOBIN 31 pg (25-34); MEAN CORPUSCULAR HGB CONC 34 g/dL (32-36); MEAN CORPUSCULAR VOLUME 90 fL (80-99); MEAN PLATELET VOLUME 8.7 fL (9.0-12.2); MONOCYTES # (AUTO) 0.4 10^3/uL (0.0-1.0); MONOCYTES % (AUTO) 10 % (0-12); NEUTROPHILS # (AUTO) 2.3 10^3/uL (1.8-7.8); NEUTROPHILS % (AUTO) 69 % (42-75); PLATELET COUNT 200 10^3/uL (130-400); WHITE BLOOD COUNT 3.4 10^3/uL (4.3-11.0)
[2020-10-16 14:06] LABS: BUN/CREATININE RATIO 9; CALCIUM 9.4 MG/DL (8.5-10.1); CARBON DIOXIDE 28 MMOL/L (21-32); CHLORIDE 104 MMOL/L (98-107); CREATININE SERUM 0.92 MG/DL (0.60-1.30); GFR ESTIMATED > 60; GLUCOSE 100 MG/DL (70-105); SODIUM 139 MMOL/L (135-145)
[2020-10-23 14:25] LABS: BASOPHILS % (AUTO) 0 % (0-10); EOSINOPHILS # (AUTO) 0.2 10^3/uL (0.0-0.3); EOSINOPHILS % (AUTO) 4 % (0-10); HEMATOCRIT 35 % (40-54); HEMOGLOBIN 11.9 g/dL (13.3-17.7); LYMPHOCYTES # (AUTO) 0.5 10^3/uL (1.0-4.0); LYMPHOCYTES % (AUTO) 12 % (12-44); MEAN CORPUSCULAR HEMOGLOBIN 32 pg (25-34); MEAN CORPUSCULAR HGB CONC 34 g/dL (32-36); MEAN CORPUSCULAR VOLUME 94 fL (80-99); MEAN PLATELET VOLUME 8.4 fL (9.0-12.2); MONOCYTES # (AUTO) 0.9 10^3/uL (0.0-1.0); MONOCYTES % (AUTO) 21 % (0-12); NEUTROPHILS # (AUTO) 2.9 10^3/uL (1.8-7.8); NEUTROPHILS % (AUTO) 63 % (42-75); PLATELET COUNT 193 10^3/uL (130-400); WHITE BLOOD COUNT 4.5 10^3/uL (4.3-11.0)
[2020-10-23 14:44] LABS: ALANINE AMINOTRANSFERASE 14 U/L (0-55); ALBUMIN 4.1 GM/DL (3.2-4.5); ALKALINE PHOSPHATASE 67 U/L (40-136); BILIRUBIN,TOTAL 0.4 MG/DL (0.1-1.0); BUN/CREATININE RATIO 16; CALCIUM 9.1 MG/DL (8.5-10.1); CARBON DIOXIDE 28 MMOL/L (21-32); CHLORIDE 105 MMOL/L (98-107); CREATININE SERUM 0.97 MG/DL (0.60-1.30); GFR ESTIMATED > 60; GLUCOSE 78 MG/DL (70-105); POTASSIUM 3.9 MMOL/L (3.6-5.0); SODIUM 139 MMOL/L (135-145); TOTAL PROTEIN 7.2 GM/DL (6.4-8.2)
[2020-10-23 14:48] LABS: SMEAR SCAN COMMENT YES
[~2020-10-30 12:45] MED LIST changes: -CYANOCOBALAMIN INJ 1000 MCG/ML (CANCER CENTER) ONE
== END 2020-11-15 14:57 | disposition home or self-care (01) ==
LOC: ONC 12:45
PROVIDERS: ATTEND Internal Medicine Hematology & Oncology
DX: C34.11 Malignant neoplasm of upper lobe, right bronchus or lung (principal); K21.9 Gastro-esophageal reflux disease without esophagitis; D64.9 Anemia, unspecified; F10.11 Alcohol abuse, in remission; Z87.891 Personal history of nicotine dependence; Z86.69 Personal history of other diseases of the nervous system and sense organs
CPT/HCPCS: 80048; 80053; 82378; 85025; 96367; 96375; 96411; 96413

== ENCOUNTER 2020-11-06 15:27 | Emergency (ER) | payer OTHER ==
[~2020-11-06] VITALS: Ht 185.5 cm; Wt 81.6 kg
[~2020-11-06 15:27] MED LIST changes: -CISPLATIN IV SCH; -FAMOTIDINE 20MG/2ML IV (CANCER CTR) IV SCH; -FOSAPREPITANT (CANCER CENTER) 150 MG in NS (IVPB) CANCER CENTER ONLY 150 ML IV SCH; -MANNITOL IV SCH; -NS IV 1000 ML (CANCER CTR) IV SCH; -ONDANSETRON 8 MG, DEXAMETHASONE 4 MG/NS 50 ML IVPB (Cancer Ctr) IV SCH; -PEMETREXED DISODIUM 1,000 MG in NS (IVPB) CANCER CENTER 100 ML IV SCH; -[UNRECOGNIZED DRUG - OTHER] IV SCH; -diphenhydrAMINE 25 MG TAB (BENADRYL) CANCER CENTER PO SCH
[2020-11-06] MEDS ORDERED: NS IV 500 ML 500 ML IV ONE (15:45)
--- NOTE | 2020-11-06 15:52 | ED Upper Extremity ---
General Chief Complaint: Upper Extremity Stated Complaint: ARM/BACK PAIN Nursing Triage Note: PT TO [facility] BY [facility] WITH COMPLAINT OF RIGHT SHOULDER PAIN AND SWELLING ALONG WITH LOW BACK PAIN. STATES SWELLING STARTED TWO NIGHTS AGO. DENIES INJURY. DENIES FEVERS. Nursing Sepsis Screen: No Definite Risk Source: patient Exam Limitations: no limitations History of Present Illness Date Seen by Provider: Nov 06, 2020 Time Seen by Provider: 15:20 Initial Comments Patient presents ER by EMS from home with chief complaint of progressively swelling and pain in his right shoulder with movement. No trauma preceding this. He also had some low back pain starting a couple days ago but that has gotten better and only aggravated by lots of movement. He rates his pain as a 0 out of 10 when he is sitting still but was concerned because of the increased swelling. 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 He has not drank in over 5 years. He denies any recent motor vehicle collisions, falls, fights, trauma etc. He is not on blood thinners. He denies any recent trips to the [place], bug bites etc. earlier this week he did receive his last dose of chemotherapy related to lung cancer from Dr. GANDHI. Last oral intake was fluids sometime earlier this afternoon and food 2 days ago. Patient later recalls that he did have a fall approximately 2 days ago onto his right shoulder after being confronted with his x-rays. Allergies and Home Medications Allergies Coded Allergies: No Known Drug Allergies (Unverified , 06/18/20) Home Medications Hydrocodone/Acetaminophen 1 Each Tablet, 1 TAB PO Q6H Prescribed by: DEANNA DEGROOT on 07/18/20 1106 Levetiracetam 500 Mg Tablet, 500 MG PO BID, (Reported) Patient Home Medication List Home Medication List Reviewed: Yes Review of Systems Constitutional: No chills, No diaphoresis EENTM: No ear discharge, No ear pain Respiratory: No cough, No dyspnea on exertion Cardiovascular: No chest pain, No palpitations Gastrointestinal: No abdominal pain, No constipation, No diarrhea, No nausea Genitourinary: No discharge, No dysuria Musculoskeletal: No back pain, No joint pain All Other Systems Reviewed Negative Unless Noted: Yes Past Qwczklj-Xxybsw-Khczje Hx Patient Social History Alcohol Use: Denies Use Recreational Drug Use: No Smoking Status: Current Everyday Smoker Type Used: Cigarettes Former Smoker, Quit: May 18, 2020 2nd Hand Smoke Exposure: No Recent Foreign Travel: No Contact w/Someone Who Travel: No Recent Infectious Disease Expo: No Recent Hopitalizations: No Immunizations Up To Date Tetanus Booster (TDap): Unknown PED Vaccines UTD: Yes Seasonal Allergies Seasonal Allergies: No Past Medical History Surgeries: Yes (kidney stone, skin graft) Respiratory: Yes (cough, dyspnea, lung cancer) Currently Using CPAP: No Currently Using BIPAP: No Cardiac: No Neurological: Yes Seizure Disorder Genitourinary: Yes Kidney Stones Gastrointestinal: No Musculoskeletal: No Endocrine: No HEENT: Yes (dentures) Cancer: Yes Lung Psychosocial: No Integumentary: No Blood Disorders: No Physical Exam Vital Signs Vital Signs - First Documented 11/06/20 15:30 Temp 36.0 Pulse 112 Resp 20 B/P (MAP) 150/92 (111) Pulse Ox 97 O2 Delivery Room Air Capillary Refill : Less Than 3 Seconds Height, Weight, BMI Height: '" Weight: lbs. oz. kg; 23.00 BMI Method: General Appearance: WD/WN, mild distress HEENT: PERRL/EOMI, pharynx normal Neck: full range of motion, supple, normal inspection Cardiovascular: normal peripheral pulses, regular rate, rhythm Respiratory: lungs clear, normal breath sounds, no respiratory distress, no accessory muscle use Gastrointestinal: normal bowel sounds, non tender, soft Back: normal inspection, muscle spasm (Mild bilateral paraspinous tenderness without deformity or step-off) Shoulder: asymmetry (Right shoulder), bone tenderness (Proximal right humerus), ecchymosis (Mild axial), limited ROM (Limited external rotation and only able to abduct approximately 15 degrees right shoulder), pain, soft tissue tenderness, swelling (Significant doubling in size of the right shoulder around the glenohumeral joint) Elbow/Forearm: normal inspection, non-tender, no evidence of injury, normal ROM, Right Wrist: Yes normal inspection, Yes non-tender, Yes no evidence of injury, Yes normal ROM Hand: non-tender, no evidence of injury, normal ROM, Right Neurologic/Tendon: normal sensation, normal motor functions, normal tendon functions, responds to pain, no evidence tendon injury Neurologic/Psychiatric: no motor/sensory deficits, alert, normal mood/affect, oriented x 3 Skin: normal color, other (Right hand is cooler to touch compared to left hand) Procedures/Interventions Procedure: Closed reduction right shoulder Patient Education: Explained Benefits, Explained Risks, Pt. Ack. Understanding Agreement on procedure with pt: Yes Breath Sounds per Auscultation: Clear Heart Sounds per Auscultation: Regular Airway Exam: Mouth opens >2 fingers, Neck Full Range of Motion, Visulation of Uvula Sedation Adminstration Time: 18:09 Total Time spent in CS 31 mins 80 mg ketamine and 50 mcg of fentanyl IV x1. Patient had adequate anesthesia and analgesia with good vital signs. We did have to start 2 L as he was holding his breath initially but with some coaching he started breathing again and not require supplemental oxygen. He was able to tolerate her first attempt at reduction. Post reduction attempt x-ray was made with no improvement in his situation. He still had good radial pulse 1+ out of 4 with brisk capillary refill. We redosed him with a second dose of 80 mg ketamine for a total of 160 mg was given. When the patient was adequately sedated and good analgesia obtained we made a second attempt. More help was recruited after the second x-ray demonstrated no change in his an terior dislocated right shoulder. A third attempt was made and a third x-ray was obtained demonstrating no reduction of his right shoulder. Patient tolerated the procedure well. He awoke shortly thereafter and we explained the situation and he agreed to transfer to ER at [place], [place]. Progress/Results/Core Measures Results/Orders Lab Results Laboratory Tests Test 11/06/20 15:55 Range/Units White Blood Count 8.3 4.3-11.0 10^3/uL Red Blood Count 3.41 L 4.30-5.52 10^6/uL Hemoglobin 10.7 L 13.3-17.7 g/dL Hematocrit 32 L 40-54 % Mean Corpuscular Volume 92 80-99 fL Mean Corpuscular Hemoglobin 31 25-34 pg Mean Corpuscular Hemoglobin Concent 34 32-36 g/dL Red Cell Distribution Width 15.3 H 10.0-14.5 % Platelet Count 174 130-400 10^3/uL Mean Platelet Volume 8.8 L 9.0-12.2 fL Immature Granulocyte % (Auto) 1 % Neutrophils (%) (Auto) 77 H 42-75 % Lymphocytes (%) (Auto) 7 L 12-44 % Monocytes (%) (Auto) 15 H 0-12 % Eosinophils (%) (Auto) 1 0-10 % Basophils (%) (Auto) 1 0-10 % Neutrophils # (Auto) 6.4 1.8-7.8 10^3/uL Lymphocytes # (Auto) 0.5 L 1.0-4.0 10^3/uL Monocytes # (Auto) 1.2 H 0.0-1.0 10^3/uL Eosinophils # (Auto) 0.1 0.0-0.3 10^3/uL Basophils # (Auto) 0.1 0.0-0.1 10^3/uL Immature Granulocyte # (Auto) 0.0 0.0-0.1 10^3/uL Neutrophils % (Manual) 82 % Lymphocytes % (Manual) 7 % Monocytes % (Manual) 8 % Eosinophils % (Manual) 3 % Basophils % (Manual) 0 % Band Neutrophils 0 % Polychromasia SLIGHT Anisocytosis SLIGHT Prothrombin Time 14.2 12.2-14.7 SEC INR Comment 1.1 0.8-1.4 Activated Partial Thromboplast Time 33 24-35 SEC D-Dimer 2.51 H 0.00-0.49 UG/ML Sodium Level 135 135-145 MMOL/L Potassium Level 3.7 3.6-5.0 MMOL/L Chloride Level 102 98-107 MMOL/L Carbon Dioxide Level 25 21-32 MMOL/L Anion Gap 8 5-14 MMOL/L Blood Urea Nitrogen 24 H 7-18 MG/DL Creatinine 0.95 0.60-1.30 MG/DL Estimat Glomerular Filtration Rate > 60 BUN/Creatinine Ratio 25 Glucose Level 92 70-105 MG/DL Calcium Level 8.8 8.5-10.1 MG/DL Corrected Calcium 8.8 8.5-10.1 MG/DL Total Bilirubin 0.7 0.1-1.0 MG/DL Aspartate Amino Transf (AST/SGOT) 53 H 5-34 U/L Alanine Aminotransferase (ALT/SGPT) 23 0-55 U/L Alkaline Phosphatase 69 40-136 U/L C-Reactive Protein High Sensitivity 14.76 H 0.00-0.50 MG/DL Total Protein 7.1 6.4-8.2 GM/DL Albumin 4.0 3.2-4.5 GM/DL My Orders Orders - MARIA ESTHER [facility] Chest 1 View, Ap/Pa Only (11/06/20 15:43) Shoulder, Right, 3 Views (11/06/20 15:43) Thoracic Spine, 2 Views Only (11/06/20 15:43) Lumbar Spine - 2-3 Views (11/06/20 15:43) Ed Iv/Invasive Line Start (11/06/20 15:43) Ns Iv 500 Ml (Sodium Chloride 0.9%) (11/06/20 15:45) Cbc With Automated Diff (11/06/20 15:43) Comprehensive Metabolic Panel (11/06/20 15:43) Hs C Reactive Protein (11/06/20 15:43) Fibrin Degradation Products (11/06/20 15:43) Protime With Inr (11/06/20 15:43) Partial Thromboplastin Time (11/06/20 15:43) Manual Differential (11/06/20 15:55) Ketamine Injection (Ketalar Injection) (11/06/20 17:45) Fentanyl Injection (Sublimaze Injection (11/06/20 17:45) Shoulder, Right, 1 View (11/06/20 ) Shoulder, Right, 1 View (11/06/20 ) Shoulder, Right, 1 View (11/06/20 17:40) Medications Given in ED Vital Signs/I&O 11/07/20 00:00 Intake Total 500 ml Balance 500 ml Blood Pressure Mean: 111 Progress Progress Note : Time: 15:52 Progress Note Patient has a significant joint effusion. He says he is comfortable as long as is not moving it. Plan to get plain films of the right shoulder chest and back. Concerning because of his history of lung cancer for subclavian clot so we will get a D-dimer to help direct further imaging. Basic labs looking for inflammatory response. Diagnostic Imaging Diagonstic Imaging: Xray Plain Films/CT/US/NM/MRI: chest Comments [facility], [place] NAME: ANDREW NASSAR [facility] REC#: [id number] PT STATUS: REG ER : 1970 PHYSICIAN: MARIA ESTHER MC MD ADMIT DATE: 11/06/20/ER Signed Date of Exam:11/06/20 CHEST 1 VIEW, AP/PA ONLY EXAMINATION: Chest 1 view HISTORY: right shoulder swelling Hx Lung Ca COMPARISON: Chest radiograph 06/20/2020 FINDINGS: Heart size and pulmonary vasculature are normal. Mild patchy interstitial and airspace opacities within the right mid and lower lung. The right humerus appears dislocated from the right glenohumeral joint. There is a osseous fragment laterally which could represent a fracture of the humeral head. A left-sided Lesh-D-ytjqasgi is present. IMPRESSION: 1. Right mid and lower lung airspace opacities which could represent pneumonia in the appropriate clinical setting. 2. Findings of a right humeral head fracture and dislocation which are better seen on the dedicated shoulder radiograph of 11/06/2020. Dictated by: Dictated on workstation # [id number] Dict: 11/06/201654 Trans: 11/06/201701 [facility] [id number] Interpreted by: ELENI POLO DO Electronically signed by: ELENI POLO DO 11/06/201701 Reviewed: Reviewed by [place] Diagonstic Imaging: Xray Plain Films/CT/US/NM/MRI: other (Right shoulder) Comments [facility] [place] NAME: ANDREW NASSAR MED REC#: [id number] PT STATUS: REG ER : 1970 PHYSICIAN: MARIA ESTHER MC MD ADMIT DATE: 11/06/20/ER Signed Date of Exam:11/06/20 SHOULDER, RIGHT, 3 VIEWS EXAMINATION: Right shoulder radiographs, 3 views. COMPARISON: None. HISTORY: 50-year-old male, right shoulder pain and swelling. FINDINGS: There is a comminuted displaced multipart fracture of the right proximal humerus with medial to lateral and superior to inferior splaying of fracture fragments. The humeral head is projecting abnormally in location relative to the glenoid and is dislocated. The acromioclavicular joint is normally aligned. IMPRESSION: 1. Comminuted displaced multipart fracture of the right proximal humerus. 2. The articulating surface of the humeral head is dislocated relative to the glenoid. Dictated by: Dictated on workstation # [id number] Dict: 11/06/206 Trans: 11/06/201703 [id number] Interpreted by: FLAKITA ARELLANO MD Electronically signed by: FLAKITA ARELLANO MD 11/06/201703 Reviewed: Reviewed by Me Diagonstic Imaging: Xray Plain Films/CT/US/NM/MRI: other (Thoracolumbar spine) Comments [facility] [place] NAME: ANDREW NASSAR [facility] REC#: [id number] PT STATUS: REG ER : 1970 PHYSICIAN: MARIA ESTHER MC MD ADMIT DATE: 11/06/20/ER Signed Date of Exam:11/06/20 THORACIC SPINE, 2 VIEWS ONLY EXAMINATION: Thoracic spine radiographs, 2 views. COMPARISON: None. HISTORY: 50-year-old male, back pain. 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 There is a very mild superior endplate concavity of T11. The thoracic disc heights are fairly well preserved. There are minimal endplate degenerative changes. IMPRESSION: 1. Mild superior endplate concavity of T11 which is age indeterminate. 2. Mild disc degenerative changes of the thoracic spine. Dictated by: Dictated on workstation # [id number] Dict: 11/06/201657 Trans: 11/06/201703 [facility] [id number] Interpreted by: FLAKITA ARELLANO MD Electronically signed by: FLAKITA ARELLANO MD 11/06/201703 [facility] [place] [place] NAME: CESARIO,ANDREW Magdaleno [facility] REC#: [id number] PT STATUS: REG ER : 1970 PHYSICIAN: MARIA ESTHER MC MD ADMIT DATE: 11/06/20/ER Signed Date of Exam:11/06/20 LUMBAR SPINE - 2-3 VIEWS EXAMINATION: Lumbar spine radiographs, 3 views. COMPARISON: None. HISTORY: 50-year-old male, low back pain. 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 There is a mild superior endplate concavity of L4. There is a superior endplate concavity of L1 with very mild L1 vertebral body height loss. The facet joints are unremarkable. The disc spaces are fairly well preserved. Unremarkable appearance of the sacroiliac joints. IMPRESSION: 1. Age-indeterminate compression deformities of L4 and L1. 2. No pronounced disc height loss or facet arthropathy. Dictated by: Dictated on workstation # [id number] Dict: 11/06/20 1657 Trans: 11/06/201703 [id number] Interpreted by: FLAKITA ARELLANO MD Electronically signed by: FLAKITA ARELLANO MD 11/06/204 Reviewed: Reviewed by Me Diagonstic Imaging: Xray Plain Films/CT/US/NM/MRI: other (left ) Comments NAME: ANDREW NASSAR MED REC#: [id number] PT STATUS: REG ER : 1970 PHYSICIAN: MARIA ESTHER MC MD ADMIT DATE: 11/06/20/ER Draft Date of Exam:11/06/20 SHOULDER, RIGHT, 1 VIEW EXAM: Right shoulder radiograph EXAM DATE: 11/06/2020. COMPARISON: Multiple right shoulder radiographs of 11/06/2020. HISTORY: Right shoulder reduction attempt #3. TECHNIQUE: Single view of the right shoulder. FINDINGS: There has been mild improvement of the humeral fracture displacement now measuring 1.5 cm (previously 2.3 cm). The humeral head continues to be dislocated from the glenohumeral joint. IMPRESSION: Minimal improvement of the humeral head fracture status post reduction. Stable glenohumeral dislocation. Dictated on workstation # [id number] Dict: 11/06/201901 Trans: 11/06/201905 [facility] [id number] Interpreted by: ELENI POLO DO Electronically signed by: Reviewed: Reviewed by [place] Diagonstic Imaging: Xray Plain Films/CT/US/NM/MRI: other (right shoulder post reductionn attempt) Comments [facility] [place], [place] NAME: ANDREW NASSAR MED REC#: [id number] PT STATUS: REG ER : 1970 PHYSICIAN: MARIA ESTHER MC MD ADMIT DATE: 11/06/20/ER Draft Date of Exam:11/06/20 SHOULDER, RIGHT, 1 VIEW EXAM: Right shoulder radiograph. EXAM DATE: 11/06/2020. COMPARISON: Right shoulder radiographs of 11/06/2020. HISTORY: Right shoulder reduction. TECHNIQUE: Single view of the right shoulder. FINDINGS: The comminuted fracture of the right humeral head, as well as the right humeral head dislocation, is unchanged from prior radiographs from 11/06/2020. IMPRESSION: Stable right shoulder radiograph compared to prior images. Dictated on workstation # [id number] Dict: 11/06/201900 Trans: 11/06/201904 [facility] [id number] Interpreted by: ELENI POLO DO Electronically signed by: Reviewed: Reviewed by Me Diagonstic Imaging: Xray Plain Films/CT/US/NM/MRI: other (Right shoulder) Comments [facility] [place] NAME: ANDREW NASSAR [facility] REC#: [id number] PT STATUS: REG ER : 1970 PHYSICIAN: MARIA ESTHER MC MD ADMIT DATE: 11/06/20/ER Draft Date of Exam:11/06/20 SHOULDER, RIGHT, 1 VIEW EXAMINATION: Right shoulder 1 view. HISTORY: Postreduction. COMPARISON: Earlier the same day. FINDINGS: There is a comminuted right humeral head fracture with dislocation of the fracture fragments anterior and posterior to the glenoid fossa. IMPRESSION: Comminuted right humeral head fracture with anterior and posterior dislocation of the fracture fragments. Dictated on workstation # [id number] Dict: 11/06/201855 Trans: 11/06/201906 [facility] [id number] Interpreted by: BARRETT SCHROEDER MD Electronically signed by: Reviewed: Reviewed by Me Consults : Consulting Physician: BEN DALE MD Consults Notes Discussed the case and reviewed imaging with orthopedic surgery. He agrees with the plan to do a closed reduction in the ER and he would recommend the patient follow-up with Dr. Hart, who specializes in shoulders at [facility]. 1835: Discussed the case with Dr. Dale and since we are unable to do a closed reduction he would recommend surgical reduction probably replacement. He rec ommends we call [facility] and see if Dr. Hart or the orthopedic surgeon on-call would want the patient there tonight or follow-up in the clinic. Since this is been going on for 2 days and the patient has not required anything for pain that may be an option to follow-up in the clinic. Departure Impression Primary Impression: Shoulder fracture, right Qualified Codes: S42.91XA - Fracture of right shoulder girdle, part unspecified, initial encounter for closed fracture Additional Impressions: Anterior shoulder dislocation Qualified Codes: S43.014A - Anterior dislocation of right humerus, initial encounter Vertebral compression fracture Qualified Codes: S32.040A - Wedge compression fracture of fourth lumbar vertebra, initial encounter for closed fracture Disposition: 01 HOME, SELF-CARE Condition: Improved Transfer Transfer Reason: Exceeds level of care Time Spoke to Accepting Phy: 18:45 Transfer Progress Notes Discussed the case with Dr. Hart, orthopedic surgery at [place], [place] and he recommends we go ahead and do a trauma transfer to the ER so he can evaluate and treat. [facility] ED: Dr. Taylor accepts the patient in transfer. 1915: Transfer team is on the way with a patient and after they have delivered the patient they will turn around and take this patient to [facility]. Transfer Time: 19:30 Transfer Facility: [facility] emergency room Method of Transfer: EMS Departure-Patient Inst. Referrals: [facility] (PCP/Family) Primary Care Physician MARIA ESTHER MC Nov 06, 2020 15:52
[2020-11-06 16:07] LABS: BASOPHILS # (AUTO) 0.1 10^3/uL (0.0-0.1); BASOPHILS % (AUTO) 1 % (0-10); EOSINOPHILS # (AUTO) 0.1 10^3/uL (0.0-0.3); EOSINOPHILS % (AUTO) 1 % (0-10); HEMATOCRIT 32 % (40-54); HEMOGLOBIN 10.7 g/dL (13.3-17.7); LYMPHOCYTES # (AUTO) 0.5 10^3/uL (1.0-4.0); LYMPHOCYTES % (AUTO) 7 % (12-44); MEAN CORPUSCULAR HEMOGLOBIN 31 pg (25-34); MEAN CORPUSCULAR HGB CONC 34 g/dL (32-36); MEAN CORPUSCULAR VOLUME 92 fL (80-99); MEAN PLATELET VOLUME 8.8 fL (9.0-12.2); MONOCYTES # (AUTO) 1.2 10^3/uL (0.0-1.0); MONOCYTES % (AUTO) 15 % (0-12); NEUTROPHILS # (AUTO) 6.4 10^3/uL (1.8-7.8); NEUTROPHILS % (AUTO) 77 % (42-75); PLATELET COUNT 174 10^3/uL (130-400); WHITE BLOOD COUNT 8.3 10^3/uL (4.3-11.0)
[2020-11-06 16:13] LABS: CHLORIDE 102 MMOL/L (98-107); POTASSIUM 3.7 MMOL/L (3.6-5.0); SODIUM 135 MMOL/L (135-145)
[2020-11-06 16:14] LABS: CALCIUM 8.8 MG/DL (8.5-10.1)
[2020-11-06 16:15] LABS: GLUCOSE 92 MG/DL (70-105); TOTAL PROTEIN 7.1 GM/DL (6.4-8.2)
[2020-11-06 16:16] LABS: CARBON DIOXIDE 25 MMOL/L (21-32)
[2020-11-06 16:17] LABS: BILIRUBIN,TOTAL 0.7 MG/DL (0.1-1.0)
[2020-11-06 16:18] LABS: FIBRIN DEGRADATION PRODUCTS 2.51 UG/ML (0.00-0.49); INR 1.1 (0.8-1.4); PROTHROMBIN TIME PATIENT 14.2 SEC (12.2-14.7)
[2020-11-06 16:19] LABS: ALKALINE PHOSPHATASE 69 U/L (40-136); BAND NEUTROPHILS 0 %; CREATININE SERUM 0.95 MG/DL (0.60-1.30); GFR ESTIMATED > 60; LYMPHOCYTES % (MANUAL) 7 %; NEUTROPHILS % (MANUAL) 82 %
[2020-11-06 16:20] LABS: ANISOCYTOSIS SLIGHT; BASOPHILS % (MANUAL) 0 %; BUN/CREATININE RATIO 25; EOSINOPHILS % (MANUAL) 3 %; MONOCYTES % (MANUAL) 8 %; POLYCHROMASIA SLIGHT
[2020-11-06 16:22] LABS: ALANINE AMINOTRANSFERASE 23 U/L (0-55)
--- NOTE | 2020-11-06 16:58 | Diagnostic Imaging Report ---
EXAMINATION: Right shoulder radiographs, 3 views. COMPARISON: None. HISTORY: 50-year-old male, right shoulder pain and swelling. FINDINGS: There is a comminuted displaced multipart fracture of the right proximal humerus with medial to lateral and superior to inferior splaying of fracture fragments. The humeral head is projecting abnormally in location relative to the glenoid and is dislocated. The acromioclavicular joint is normally aligned. IMPRESSION: 1. Comminuted displaced multipart fracture of the right proximal humerus. 2. The articulating surface of the humeral head is dislocated relative to the glenoid. Dictated by: Dictated on workstation # [id number]
--- NOTE | 2020-11-06 17:00 | Diagnostic Imaging Report ---
EXAMINATION: Lumbar spine radiographs, 3 views. COMPARISON: None. HISTORY: 50-year-old male, low back pain. 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 There is a mild superior endplate concavity of L4. There is a superior endplate concavity of L1 with very mild L1 vertebral body height loss. The facet joints are unremarkable. The disc spaces are fairly well preserved. Unremarkable appearance of the sacroiliac joints. IMPRESSION: 1. Age-indeterminate compression deformities of L4 and L1. 2. No pronounced disc height loss or facet arthropathy. Dictated by: Dictated on workstation # [id number]
--- NOTE | 2020-11-06 17:01 | Diagnostic Imaging Report ---
EXAMINATION: Chest 1 view HISTORY: right shoulder swelling Hx Lung Ca COMPARISON: Chest radiograph 06/20/2020 FINDINGS: Heart size and pulmonary vasculature are normal. Mild patchy interstitial and airspace opacities within the right mid and lower lung. The right humerus appears dislocated from the right glenohumeral joint. There is a osseous fragment laterally which could represent a fracture of the humeral head. A left-sided Obmy-V-hxpglwin is present. IMPRESSION: 1. Right mid and lower lung airspace opacities which could represent pneumonia in the appropriate clinical setting. 2. Findings of a right humeral head fracture and dislocation which are better seen on the dedicated shoulder radiograph of 11/06/2020. Dictated by: Dictated on workstation # [id number]
--- NOTE | 2020-11-06 17:02 | Diagnostic Imaging Report ---
EXAMINATION: Thoracic spine radiographs, 2 views. COMPARISON: None. HISTORY: 50-year-old male, back pain. 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 There is a very mild superior endplate concavity of T11. The thoracic disc heights are fairly well preserved. There are minimal endplate degenerative changes. IMPRESSION: 1. Mild superior endplate concavity of T11 which is age indeterminate. 2. Mild disc degenerative changes of the thoracic spine. Dictated by: Dictated on workstation # [id number]
[2020-11-06] MEDS ORDERED: KETAMINE HCL 100 MG/ML 5 ML VIAL IV ONE (17:45)
[2020-11-06] MEDS ORDERED: fentaNYL INJECTION 100 MCG/2 ML AMP IVP ONE ×2 (17:45→19:45)
--- NOTE | 2020-11-06 18:05 | NUR ---
1805- DENTURES REMOVED AND PLACED IN CONTAINER AT BEDSIDE 1805- HR 105 RR 16 O2 99% 150/120 CO2 30 1807- 50MCG FENTANYL ADMINISTERED 1809- 80MG KETAMINE ADMINISTERED 1815- XRAY, SHOULDER STILL DISLOCATED 1820- HR 109, RR 10, BP 176/109, 99% 4LNC 1825- 80MG KETAMINE ADMINISTERED 1840- HR 114, RR 18, BP 159/114, O2 95% 1840- PT ALERT AND TALKING
--- NOTE | 2020-11-06 19:05 | Diagnostic Imaging Report ---
EXAM: Right shoulder radiograph. EXAM DATE: 11/06/2020. COMPARISON: Right shoulder radiographs of 11/06/2020. HISTORY: Right shoulder reduction. TECHNIQUE: Single view of the right shoulder. FINDINGS: The comminuted fracture of the right humeral head, as well as the right humeral head dislocation, is unchanged from prior radiographs from 11/06/2020. IMPRESSION: Stable right shoulder radiograph compared to prior images. Dictated by: Dictated on workstation # [id number]
--- NOTE | 2020-11-06 19:07 | Diagnostic Imaging Report ---
EXAM: Right shoulder radiograph EXAM DATE: 11/06/2020. COMPARISON: Multiple right shoulder radiographs of 11/06/2020. HISTORY: Right shoulder reduction attempt #3. TECHNIQUE: Single view of the right shoulder. FINDINGS: There has been mild improvement of the humeral fracture displacement now measuring 1.5 cm (previously 2.3 cm). The humeral head continues to be dislocated from the glenohumeral joint. IMPRESSION: Minimal improvement of the humeral head fracture status post reduction. Stable glenohumeral dislocation. Dictated by: Dictated on workstation # [id number]
--- NOTE | 2020-11-06 19:08 | Diagnostic Imaging Report ---
EXAMINATION: Right shoulder 1 view. HISTORY: Postreduction. COMPARISON: Earlier the same day. FINDINGS: There is a comminuted right humeral head fracture with dislocation of the fracture fragments anterior and posterior to the glenoid fossa. IMPRESSION: Comminuted right humeral head fracture with anterior and posterior dislocation of the fracture fragments. Dictated by: Dictated on workstation # [id number]
[2020-11-06 19:54] VITALS: BP 158/105
== END 2020-11-06 19:54 | disposition short-term general hospital (02) ==
LOC: EDUNIT# 15:27 → ER 15:29
DX: S42.291A Other displaced fracture of upper end of right humerus, initial encounter for closed fracture (principal); S32.040A Wedge compression fracture of fourth lumbar vertebra, initial encounter for closed fracture; S32.010A Wedge compression fracture of first lumbar vertebra, initial encounter for closed fracture; S22.080A Wedge compression fracture of T11-T12 vertebra, initial encounter for closed fracture; G40.909 Epilepsy, unspecified, not intractable, without status epilepticus; S43.014A Anterior dislocation of right humerus, initial encounter; F17.210 Nicotine dependence, cigarettes, uncomplicated; Z85.118 Personal history of other malignant neoplasm of bronchus and lung; X58.XXXA Exposure to other specified factors, initial encounter
CPT/HCPCS: 36415; 71045; 72070; 72100; 73020; 73030; 80053; 85007; 85027; 85379; 85610; 85730; 86141; 93041

== ENCOUNTER → 2021-01-21 | Outpatient (CLI) | payer OTHER ==
--- NOTE | 2021-01-21 13:07 | Diagnostic Imaging Report ---
INDICATION: Adenocarcinoma of the lung with subsequent treatment strategy and restaging as well as response to treatment. TECHNIQUE: Serum blood glucose level at the time of injection is 92 mg/dL. Patient was administered 14.2 mCi F-18 FDG intravenously in left hand and PET imaging was performed from the top of skull to mid thighs. Noncontrast CT was also performed for attenuation correction and anatomic correlation. COMPARISON: Comparison is made with prior CT chest from 09/23/2020 as well as prior PET/CT from 06/25/2020. FINDINGS: There is symmetric activity throughout the brain. Soft tissues of the neck are unremarkable apart from some uptake along the posterior aspect of the right lobe of the thyroid, indeterminate. SUV max is approximately 6.0. Imaging through the chest demonstrates moderate-sized pleural effusion. There is some infiltrate in the right lower lobe which demonstrates some low-level activity and may be infectious/inflammatory. SUV max is borderline around 4.3. Previously seen mass with intense uptake at the right hilum as well as along the right heart border and cardiophrenic angle on the right is no longer present. There does continue to be some soft tissue density at the right cardiophrenic angle measuring 3.7 cm but no uptake is seen. Right hilum is unremarkable. No areas of intense hypermetabolism are identified. Abdomen and pelvis demonstrate physiologic uptake of activity within the gastrointestinal and genitourinary tracts. No suspicious hypermetabolism is identified. IMPRESSION: 1. The previously noted intense hypermetabolism involving the right hilum as well as along the right heart border and right cardiophrenic angle on PET/CT from 06/25/2020 is no longer present. There is some residual soft tissue density in the right cardiophrenic angle but this again is not hypermetabolic. Patient has developed a [id number] right-sided effusion. There is also some infiltrate present in the right lower lobe which may be infectious/inflammatory. 2. Indeterminate uptake along the posterior aspect of the thyroid. Dedicated thyroid ultrasound would be useful for further evaluation. Dictated by: Dictated on workstation # [id number]
== END ==
LOC: RAD 09:12
PROVIDERS: ATTEND Internal Medicine Hematology & Oncology
DX: C34.11 Malignant neoplasm of upper lobe, right bronchus or lung (principal)
CPT/HCPCS: 78815; A9552

== ENCOUNTER 2021-03-18 13:45 | Outpatient (RCR) | payer OTHER ==
[2021-01-09 10:32] LABS: BASOPHILS % (AUTO) 1 % (0-10); EOSINOPHILS # (AUTO) 0.2 10^3/uL (0.0-0.3); EOSINOPHILS % (AUTO) 3 % (0-10); HEMATOCRIT 37 % (40-54); HEMOGLOBIN 12.1 g/dL (13.3-17.7); LYMPHOCYTES # (AUTO) 0.7 10^3/uL (1.0-4.0); LYMPHOCYTES % (AUTO) 11 % (12-44); MEAN CORPUSCULAR HEMOGLOBIN 30 pg (25-34); MEAN CORPUSCULAR HGB CONC 33 g/dL (32-36); MEAN CORPUSCULAR VOLUME 91 fL (80-99); MEAN PLATELET VOLUME 8.3 fL (9.0-12.2); MONOCYTES # (AUTO) 0.6 10^3/uL (0.0-1.0); MONOCYTES % (AUTO) 10 % (0-12); NEUTROPHILS # (AUTO) 4.7 10^3/uL (1.8-7.8); NEUTROPHILS % (AUTO) 75 % (42-75); PLATELET COUNT 310 10^3/uL (130-400); WHITE BLOOD COUNT 6.3 10^3/uL (4.3-11.0)
[2021-01-09 10:50] LABS: ALANINE AMINOTRANSFERASE 16 U/L (0-55); ALBUMIN 4.3 GM/DL (3.2-4.5); ALKALINE PHOSPHATASE 97 U/L (40-136); BILIRUBIN,TOTAL 0.3 MG/DL (0.1-1.0); BUN/CREATININE RATIO 14; CALCIUM 9.4 MG/DL (8.5-10.1); CARBON DIOXIDE 24 MMOL/L (21-32); CHLORIDE 105 MMOL/L (98-107); CREATININE SERUM 1.03 MG/DL (0.60-1.30); GFR ESTIMATED > 60; GLUCOSE 95 MG/DL (70-105); POTASSIUM 3.8 MMOL/L (3.6-5.0); SODIUM 140 MMOL/L (135-145)
[2021-02-18 14:46] LABS: BASOPHILS # (AUTO) 0.1 10^3/uL (0.0-0.1); BASOPHILS % (AUTO) 1 % (0-10); EOSINOPHILS # (AUTO) 0.1 10^3/uL (0.0-0.3); EOSINOPHILS % (AUTO) 2 % (0-10); HEMATOCRIT 40 % (40-54); HEMOGLOBIN 12.9 g/dL (13.3-17.7); LYMPHOCYTES # (AUTO) 0.6 10^3/uL (1.0-4.0); LYMPHOCYTES % (AUTO) 12 % (12-44); MEAN CORPUSCULAR HEMOGLOBIN 28 pg (25-34); MEAN CORPUSCULAR HGB CONC 33 g/dL (32-36); MEAN CORPUSCULAR VOLUME 87 fL (80-99); MEAN PLATELET VOLUME 8.3 fL (9.0-12.2); MONOCYTES # (AUTO) 0.4 10^3/uL (0.0-1.0); MONOCYTES % (AUTO) 8 % (0-12); NEUTROPHILS # (AUTO) 4.1 10^3/uL (1.8-7.8); NEUTROPHILS % (AUTO) 78 % (42-75); PLATELET COUNT 281 10^3/uL (130-400); WHITE BLOOD COUNT 5.3 10^3/uL (4.3-11.0)
[2021-02-18 15:07] LABS: ALANINE AMINOTRANSFERASE 15 U/L (0-55); ALBUMIN 4.2 GM/DL (3.2-4.5); ALKALINE PHOSPHATASE 99 U/L (40-136); BILIRUBIN,TOTAL 0.3 MG/DL (0.1-1.0); BUN/CREATININE RATIO 14; CARBON DIOXIDE 25 MMOL/L (21-32); CHLORIDE 104 MMOL/L (98-107); CREATININE SERUM 1.06 MG/DL (0.60-1.30); GFR ESTIMATED > 60; GLUCOSE 85 MG/DL (70-105); POTASSIUM 4.1 MMOL/L (3.6-5.0); SODIUM 138 MMOL/L (135-145); TOTAL PROTEIN 7.8 GM/DL (6.4-8.2)
[2021-02-18 16:41] LABS: BILIRUBIN,URINE NEGATIVE (NEGATIVE); CLARITY,URINE CLEAR; COLOR,URINE YELLOW; GLUCOSE, URINE (UA) NEGATIVE (NEGATIVE); KETONES,URINE NEGATIVE (NEGATIVE); LEUKOCYTE ESTERASE ,URINE NEGATIVE (NEGATIVE); NITRITE,URINE NEGATIVE (NEGATIVE); PROTEIN,URINE NEGATIVE (NEGATIVE)
[2021-02-18 16:48] LABS: BACTERIA,URINE NEGATIVE /HPF; RBC,URINE 0-2 /HPF; SQUAMOUS EPITHELIAL CELL,UR 0-2 /HPF; WBC,URINE 0-2 /HPF
[2021-03-04 15:09] LABS: BASOPHILS # (AUTO) 0.1 10^3/uL (0.0-0.1); BASOPHILS % (AUTO) 1 % (0-10); EOSINOPHILS # (AUTO) 0.1 10^3/uL (0.0-0.3); EOSINOPHILS % (AUTO) 2 % (0-10); HEMATOCRIT 38 % (40-54); HEMOGLOBIN 12.2 g/dL (13.3-17.7); LYMPHOCYTES # (AUTO) 0.7 10^3/uL (1.0-4.0); LYMPHOCYTES % (AUTO) 15 % (12-44); MEAN CORPUSCULAR HEMOGLOBIN 28 pg (25-34); MEAN CORPUSCULAR HGB CONC 32 g/dL (32-36); MEAN CORPUSCULAR VOLUME 88 fL (80-99); MEAN PLATELET VOLUME 8.6 fL (9.0-12.2); MONOCYTES # (AUTO) 0.5 10^3/uL (0.0-1.0); MONOCYTES % (AUTO) 11 % (0-12); NEUTROPHILS # (AUTO) 3.2 10^3/uL (1.8-7.8); NEUTROPHILS % (AUTO) 70 % (42-75); PLATELET COUNT 247 10^3/uL (130-400); WHITE BLOOD COUNT 4.5 10^3/uL (4.3-11.0)
[2021-03-04 15:31] LABS: BUN/CREATININE RATIO 12; CALCIUM 9.4 MG/DL (8.5-10.1); CARBON DIOXIDE 27 MMOL/L (21-32); CHLORIDE 105 MMOL/L (98-107); CREATININE SERUM 1.06 MG/DL (0.60-1.30); GFR ESTIMATED > 60; GLUCOSE 83 MG/DL (70-105); POTASSIUM 4.1 MMOL/L (3.6-5.0); SODIUM 141 MMOL/L (135-145)
[~2021-03-18] VITALS: Ht 180.3 cm; Wt 87.5 kg
[~2021-03-18 13:45] MED LIST changes: +DURVALUMAB IV SCH; +NS IV 1000 ML (CANCER CTR) 1,000 ML IV SCH; +NS IV SCH; +diphenhydrAMINE 25 MG TAB (BENADRYL) CANCER CENTER PO SCH
[2021-03-18 14:02] LABS: BASOPHILS % (AUTO) 1 % (0-10); EOSINOPHILS # (AUTO) 0.1 10^3/uL (0.0-0.3); EOSINOPHILS % (AUTO) 2 % (0-10); HEMATOCRIT 38 % (40-54); HEMOGLOBIN 12.5 g/dL (13.3-17.7); LYMPHOCYTES # (AUTO) 0.7 10^3/uL (1.0-4.0); LYMPHOCYTES % (AUTO) 11 % (12-44); MEAN CORPUSCULAR HEMOGLOBIN 29 pg (25-34); MEAN CORPUSCULAR HGB CONC 33 g/dL (32-36); MEAN CORPUSCULAR VOLUME 86 fL (80-99); MEAN PLATELET VOLUME 8.4 fL (9.0-12.2); MONOCYTES # (AUTO) 0.5 10^3/uL (0.0-1.0); MONOCYTES % (AUTO) 9 % (0-12); NEUTROPHILS # (AUTO) 4.6 10^3/uL (1.8-7.8); NEUTROPHILS % (AUTO) 78 % (42-75); PLATELET COUNT 264 10^3/uL (130-400); WHITE BLOOD COUNT 5.9 10^3/uL (4.3-11.0)
[2021-03-18 14:26] LABS: ALANINE AMINOTRANSFERASE 13 U/L (0-55); ALBUMIN 4.2 GM/DL (3.2-4.5); ALKALINE PHOSPHATASE 81 U/L (40-136); BILIRUBIN,TOTAL 0.4 MG/DL (0.1-1.0); BUN/CREATININE RATIO 15; CALCIUM 9.2 MG/DL (8.5-10.1); CARBON DIOXIDE 25 MMOL/L (21-32); CHLORIDE 104 MMOL/L (98-107); CREATININE SERUM 1.07 MG/DL (0.60-1.30); GFR ESTIMATED > 60; GLUCOSE 100 MG/DL (70-105); POTASSIUM 4.1 MMOL/L (3.6-5.0); SODIUM 139 MMOL/L (135-145); TOTAL PROTEIN 7.5 GM/DL (6.4-8.2)
== END 2021-03-19 | disposition home or self-care (01) ==
LOC: ONC 13:45
PROVIDERS: ATTEND Internal Medicine Hematology & Oncology
DX: C34.11 Malignant neoplasm of upper lobe, right bronchus or lung (principal); D64.81 Anemia due to antineoplastic chemotherapy; K21.9 Gastro-esophageal reflux disease without esophagitis; F10.11 Alcohol abuse, in remission; Z87.891 Personal history of nicotine dependence; Z86.69 Personal history of other diseases of the nervous system and sense organs
CPT/HCPCS: 36591; 80048; 80053; 81000; 82378; 84443; 85025; 96413; 99213

== ENCOUNTER → 2021-05-23 | Outpatient (CLI) | payer OTHER ==
[~2021-05-23] MED LIST changes: -DURVALUMAB IV SCH; -NS IV 1000 ML (CANCER CTR) 1,000 ML IV SCH; -NS IV SCH; -diphenhydrAMINE 25 MG TAB (BENADRYL) CANCER CENTER PO SCH
--- NOTE | 2021-05-23 19:33 | Diagnostic Imaging Report ---
PROCEDURE: CT chest with contrast only. TECHNIQUE: Multiple contiguous axial images were obtained through the chest after administration of intravenous contrast. Auto Exposure Controls were utilized during the CT exam to meet ALARA standards for radiation dose reduction. DATE: May 23, 2021. COMPARISON: September 23, 2020. June 17, 2020. PET CT January 21, 2021. INDICATION: 51-year-old male, history of adenocarcinoma of the right upper lobe. Feeding exam after chemotherapy. FINDINGS: There are upper lobe predominant findings of centrilobular and paraseptal emphysema. There are predominantly linear opacities in the right upper lobe, right middle lobe and right lower lobe with the areas of linear opacification most consistent with scarring and/or atelectasis. There is a more nodular masslike area of consolidation in the anterior and medial aspect of the right upper lobe measuring 2.7 x 2.6 cm in axial extent. On January 21, 2021, this previously measured approximately 3.7 x 2.3 cm in size. It measures mildly reduced in size on the current exam. There is a small right pleural effusion. There is a left lower lobe pulmonary nodule on axial image 81 measuring 11 mm in size which is unchanged. There is no pneumothorax. There is abnormal low-attenuation in the right hilar region likely relating to adenopathy measuring 1.2 cm in short axis on axial image 45. There is a subcarinal lymph node measuring 1.4 cm in short axis on axial image 52. Imaged portions of the upper abdomen are grossly unremarkable in appearance. There are multilevel degenerative changes of the spine. There is a right shoulder prosthesis. There is a compression type deformity of the inferior aspect of T3 and also of T5. These are new since September 23, 2020. IMPRESSION: CT chest: 1. Masslike consolidation in the anterior medial aspect of the right upper lobe, similar in size to prior PET/CT. There is note of extension of hypermetabolic activity in this region on initial PET/CT of June 25, 2020. This likely relates to the original site of malignancy. 2. Small right pleural effusion. 3. Stable 11 mm left lower lobe pulmonary nodule. 4. Abnormally enlarged right hilar and subcarinal lymph nodes concerning for metastatic ellen disease which appears to be a change since prior PET/CT. 5. Interval compression deformities of T3 and T5 since September 23, 2020. 6. Areas of predominantly linear opacification in the right lung most likely relate to scarring and/or atelectasis. Dictated by: Dictated on workstation # [id number]
== END ==
LOC: RAD 13:36
PROVIDERS: ATTEND Internal Medicine Hematology & Oncology
DX: J18.1 Lobar pneumonia, unspecified organism (principal); J90 Pleural effusion, not elsewhere classified; M43.8X4 Other specified deforming dorsopathies, thoracic region; R91.1 Solitary pulmonary nodule; R91.8 Other nonspecific abnormal finding of lung field; Z85.118 Personal history of other malignant neoplasm of bronchus and lung
CPT/HCPCS: 71260

== ENCOUNTER 2021-06-23 14:21 | Outpatient (RCR) | payer OTHER ==
[2021-04-15 13:42] LABS: BASOPHILS # (AUTO) 0.1 10^3/uL (0.0-0.1); BASOPHILS % (AUTO) 1 % (0-10); EOSINOPHILS # (AUTO) 0.1 10^3/uL (0.0-0.3); EOSINOPHILS % (AUTO) 2 % (0-10); HEMATOCRIT 38 % (40-54); HEMOGLOBIN 12.4 g/dL (13.3-17.7); LYMPHOCYTES # (AUTO) 0.7 10^3/uL (1.0-4.0); LYMPHOCYTES % (AUTO) 12 % (12-44); MEAN CORPUSCULAR HEMOGLOBIN 28 pg (25-34); MEAN CORPUSCULAR HGB CONC 33 g/dL (32-36); MEAN CORPUSCULAR VOLUME 87 fL (80-99); MEAN PLATELET VOLUME 8.7 fL (9.0-12.2); MONOCYTES # (AUTO) 0.5 10^3/uL (0.0-1.0); MONOCYTES % (AUTO) 10 % (0-12); NEUTROPHILS # (AUTO) 4.1 10^3/uL (1.8-7.8); NEUTROPHILS % (AUTO) 75 % (42-75); PLATELET COUNT 242 10^3/uL (130-400); WHITE BLOOD COUNT 5.5 10^3/uL (4.3-11.0)
[2021-04-15 14:02] LABS: ALANINE AMINOTRANSFERASE 16 U/L (0-55); ALBUMIN 4.1 GM/DL (3.2-4.5); ALKALINE PHOSPHATASE 79 U/L (40-136); BILIRUBIN,TOTAL 0.6 MG/DL (0.1-1.0); BUN/CREATININE RATIO 12; CALCIUM 9.2 MG/DL (8.5-10.1); CARBON DIOXIDE 26 MMOL/L (21-32); CHLORIDE 106 MMOL/L (98-107); CREATININE SERUM 0.98 MG/DL (0.60-1.30); GFR ESTIMATED > 60; GLUCOSE 82 MG/DL (70-105); POTASSIUM 3.9 MMOL/L (3.6-5.0); SODIUM 140 MMOL/L (135-145); TOTAL PROTEIN 7.2 GM/DL (6.4-8.2)
[2021-05-23 14:05] LABS: BASOPHILS % (AUTO) 1 % (0-10); EOSINOPHILS # (AUTO) 0.1 10^3/uL (0.0-0.3); EOSINOPHILS % (AUTO) 2 % (0-10); HEMATOCRIT 40 % (40-54); HEMOGLOBIN 13.1 g/dL (13.3-17.7); LYMPHOCYTES # (AUTO) 0.7 10^3/uL (1.0-4.0); LYMPHOCYTES % (AUTO) 11 % (12-44); MEAN CORPUSCULAR HEMOGLOBIN 30 pg (25-34); MEAN CORPUSCULAR HGB CONC 33 g/dL (32-36); MEAN CORPUSCULAR VOLUME 91 fL (80-99); MEAN PLATELET VOLUME 8.6 fL (9.0-12.2); MONOCYTES # (AUTO) 0.6 10^3/uL (0.0-1.0); MONOCYTES % (AUTO) 9 % (0-12); NEUTROPHILS # (AUTO) 4.8 10^3/uL (1.8-7.8); NEUTROPHILS % (AUTO) 77 % (42-75); PLATELET COUNT 280 10^3/uL (130-400); WHITE BLOOD COUNT 6.2 10^3/uL (4.3-11.0)
[2021-05-23 14:29] LABS: ALANINE AMINOTRANSFERASE 13 U/L (0-55); ALBUMIN 4.2 GM/DL (3.2-4.5); ALKALINE PHOSPHATASE 70 U/L (40-136); BILIRUBIN,TOTAL 0.5 MG/DL (0.1-1.0); BUN/CREATININE RATIO 23; CALCIUM 9.2 MG/DL (8.5-10.1); CARBON DIOXIDE 24 MMOL/L (21-32); CHLORIDE 107 MMOL/L (98-107); CREATININE SERUM 0.96 MG/DL (0.60-1.30); GFR ESTIMATED > 60; GLUCOSE 85 MG/DL (70-105); POTASSIUM 4.3 MMOL/L (3.6-5.0); SODIUM 139 MMOL/L (135-145); TOTAL PROTEIN 7.5 GM/DL (6.4-8.2)
[~2021-06-23 14:21] MED LIST changes: +DURVALUMAB IV SCH; +NS IV 1000 ML (CANCER CTR) 1,000 ML IV SCH; +NS IV SCH; +diphenhydrAMINE 25 MG TAB (BENADRYL) CANCER CENTER PO SCH
[2021-06-23 14:49] LABS: BASOPHILS % (AUTO) 1 % (0-10); EOSINOPHILS # (AUTO) 0.1 10^3/uL (0.0-0.3); EOSINOPHILS % (AUTO) 2 % (0-10); HEMATOCRIT 39 % (40-54); LYMPHOCYTES # (AUTO) 0.7 10^3/uL (1.0-4.0); LYMPHOCYTES % (AUTO) 16 % (12-44); MEAN CORPUSCULAR HEMOGLOBIN 30 pg (25-34); MEAN CORPUSCULAR HGB CONC 34 g/dL (32-36); MEAN CORPUSCULAR VOLUME 90 fL (80-99); MEAN PLATELET VOLUME 8.6 fL (9.0-12.2); MONOCYTES # (AUTO) 0.4 10^3/uL (0.0-1.0); MONOCYTES % (AUTO) 10 % (0-12); NEUTROPHILS % (AUTO) 71 % (42-75); PLATELET COUNT 251 10^3/uL (130-400); WHITE BLOOD COUNT 4.2 10^3/uL (4.3-11.0)
[2021-06-23 15:13] LABS: ALBUMIN 4.1 GM/DL (3.2-4.5); BILIRUBIN,TOTAL 0.4 MG/DL (0.1-1.0); CALCIUM 9.3 MG/DL (8.5-10.1); CREATININE SERUM 0.98 MG/DL (0.60-1.30); POTASSIUM 3.9 MMOL/L (3.6-5.0); TOTAL PROTEIN 7.2 GM/DL (6.4-8.2)
== END 2021-06-30 | disposition home or self-care (01) ==
LOC: ONC 14:21
PROVIDERS: ATTEND Internal Medicine Hematology & Oncology
DX: Z51.11 Encounter for antineoplastic chemotherapy (principal); C34.11 Malignant neoplasm of upper lobe, right bronchus or lung; D64.81 Anemia due to antineoplastic chemotherapy; E03.9 Hypothyroidism, unspecified; K21.9 Gastro-esophageal reflux disease without esophagitis; F10.11 Alcohol abuse, in remission; Z86.69 Personal history of other diseases of the nervous system and sense organs; Z79.899 Other long term (current) drug therapy; M79.601 Pain in right arm; M54.5 Low back pain; Z87.891 Personal history of nicotine dependence; Z92.3 Personal history of irradiation; Z79.891 Long term (current) use of opiate analgesic
CPT/HCPCS: 36591; 80053; 82378; 84443; 85025; 96413

== ENCOUNTER 2021-09-29 11:59 | Outpatient (RCR) | payer OTHER ==
[2021-07-21 13:24] LABS: BASOPHILS % (AUTO) 1 % (0-10); EOSINOPHILS # (AUTO) 0.1 10^3/uL (0.0-0.3); EOSINOPHILS % (AUTO) 3 % (0-10); HEMATOCRIT 40 % (40-54); HEMOGLOBIN 13.4 g/dL (13.3-17.7); LYMPHOCYTES # (AUTO) 0.7 10^3/uL (1.0-4.0); LYMPHOCYTES % (AUTO) 16 % (12-44); MEAN CORPUSCULAR HEMOGLOBIN 30 pg (25-34); MEAN CORPUSCULAR HGB CONC 33 g/dL (32-36); MEAN CORPUSCULAR VOLUME 90 fL (80-99); MEAN PLATELET VOLUME 8.5 fL (9.0-12.2); MONOCYTES # (AUTO) 0.5 10^3/uL (0.0-1.0); MONOCYTES % (AUTO) 11 % (0-12); NEUTROPHILS # (AUTO) 3.2 10^3/uL (1.8-7.8); NEUTROPHILS % (AUTO) 69 % (42-75); PLATELET COUNT 247 10^3/uL (130-400); WHITE BLOOD COUNT 4.6 10^3/uL (4.3-11.0)
[2021-07-21 13:47] LABS: ALBUMIN 4.1 GM/DL (3.2-4.5); BILIRUBIN,TOTAL 0.6 MG/DL (0.1-1.0); CALCIUM 9.6 MG/DL (8.5-10.1); CREATININE SERUM 0.96 MG/DL (0.60-1.30); POTASSIUM 4.3 MMOL/L (3.6-5.0); TOTAL PROTEIN 7.1 GM/DL (6.4-8.2)
[2021-08-18 10:53] LABS: BASOPHILS % (AUTO) 1 % (0-10); EOSINOPHILS # (AUTO) 0.1 10^3/uL (0.0-0.3); EOSINOPHILS % (AUTO) 2 % (0-10); HEMATOCRIT 41 % (40-54); HEMOGLOBIN 13.6 g/dL (13.3-17.7); LYMPHOCYTES # (AUTO) 0.8 10^3/uL (1.0-4.0); LYMPHOCYTES % (AUTO) 13 % (12-44); MEAN CORPUSCULAR HEMOGLOBIN 29 pg (25-34); MEAN CORPUSCULAR HGB CONC 33 g/dL (32-36); MEAN CORPUSCULAR VOLUME 89 fL (80-99); MEAN PLATELET VOLUME 8.3 fL (9.0-12.2); MONOCYTES # (AUTO) 0.7 10^3/uL (0.0-1.0); MONOCYTES % (AUTO) 10 % (0-12); NEUTROPHILS # (AUTO) 4.7 10^3/uL (1.8-7.8); NEUTROPHILS % (AUTO) 73 % (42-75); PLATELET COUNT 259 10^3/uL (130-400); WHITE BLOOD COUNT 6.3 10^3/uL (4.3-11.0)
[2021-08-18 11:36] LABS: BILIRUBIN,TOTAL 0.5 MG/DL (0.1-1.0); CALCIUM 9.7 MG/DL (8.5-10.1); CREATININE SERUM 0.88 MG/DL (0.60-1.30); POTASSIUM 4.1 MMOL/L (3.6-5.0); TOTAL PROTEIN 7.2 GM/DL (6.4-8.2)
[2021-09-15 13:09] LABS: BASOPHILS % (AUTO) 1 % (0-10); EOSINOPHILS # (AUTO) 0.1 10^3/uL (0.0-0.3); EOSINOPHILS % (AUTO) 2 % (0-10); HEMATOCRIT 40 % (40-54); HEMOGLOBIN 13.4 g/dL (13.3-17.7); LYMPHOCYTES # (AUTO) 0.8 10^3/uL (1.0-4.0); LYMPHOCYTES % (AUTO) 12 % (12-44); MEAN CORPUSCULAR HEMOGLOBIN 30 pg (25-34); MEAN CORPUSCULAR HGB CONC 34 g/dL (32-36); MEAN CORPUSCULAR VOLUME 89 fL (80-99); MEAN PLATELET VOLUME 8.5 fL (9.0-12.2); MONOCYTES # (AUTO) 0.6 10^3/uL (0.0-1.0); MONOCYTES % (AUTO) 9 % (0-12); NEUTROPHILS # (AUTO) 4.9 10^3/uL (1.8-7.8); NEUTROPHILS % (AUTO) 76 % (42-75); PLATELET COUNT 248 10^3/uL (130-400); WHITE BLOOD COUNT 6.5 10^3/uL (4.3-11.0)
[2021-09-15 13:45] LABS: BILIRUBIN,TOTAL 0.5 MG/DL (0.1-1.0); CALCIUM 9.1 MG/DL (8.5-10.1); CREATININE SERUM 0.88 MG/DL (0.60-1.30); TOTAL PROTEIN 7.1 GM/DL (6.4-8.2)
== END 2021-10-05 | disposition home or self-care (01) ==
LOC: ONC 11:59
PROVIDERS: ATTEND Internal Medicine Hematology & Oncology
DX: Z51.11 Encounter for antineoplastic chemotherapy (principal); C34.11 Malignant neoplasm of upper lobe, right bronchus or lung; D64.81 Anemia due to antineoplastic chemotherapy; K21.9 Gastro-esophageal reflux disease without esophagitis; F10.11 Alcohol abuse, in remission; F17.210 Nicotine dependence, cigarettes, uncomplicated; Z86.69 Personal history of other diseases of the nervous system and sense organs
CPT/HCPCS: 36591; 80053; 82378; 84443; 85025; 96413

== ENCOUNTER → 2021-10-09 | Outpatient (CLI) | payer OTHER ==
[~2021-10-09] MED LIST changes: +BARIUM SUSPENSION 2.1% (VANILLA SILQ) 450 ML PO ONE; +CATHETER FLUSH 10 ML SYR IV PRN; -DURVALUMAB IV SCH; +HOLD METFORMIN - RECEIVED CONTRAST 20 ML VIAL IV SCH; +IOHEXOL 350 MG/ML 100 ML (OMNIPAQUE 350) VIAL IV ONE; +NS 100 ML (IVPB) BAG IV ONE; -NS IV 1000 ML (CANCER CTR) 1,000 ML IV SCH; -NS IV SCH; -diphenhydrAMINE 25 MG TAB (BENADRYL) CANCER CENTER PO SCH
--- NOTE | 2021-10-09 13:15 | Diagnostic Imaging Report ---
PROCEDURE: CT chest with contrast, CT abdomen with and without contrast. TECHNIQUE: Precontrast acquisitions were acquired through the abdomen. Multiple contiguous axial images were obtained through the chest and abdomen after administration of intravenous contrast. Auto Exposure Controls were utilized during the CT exam to meet ALARA standards for radiation dose reduction. INDICATION: Lung cancer. COMPARISON: Exam is compared with a chest CT 05/23/2021. FINDINGS: CHEST: There are findings presumed to reflect right upper and lower lobe paramediastinal post-radiation fibrosis. No discrete measurable mass within the field. No pathologically enlarged lymph nodes at follow-up. Severe underlying emphysematous changes. This patient has a small right pleural effusion, decreased in the interim. No suspect or acute chest wall abnormality. The aorta is patent and nonaneurysmal. ABDOMEN: Adrenal gland are stable and negative. There is no liver mass. The gallbladder, bile ducts, spleen, and pancreas are unremarkable. The kidneys are unobstructed. There is no ascites, abscess, hematoma, or acute fluid collection. There is no suspicious or acute bony abnormality. IMPRESSION: CHEST: Right lung paramediastinal post-radiation fibrosis. No discrete measurable mass or apparent adenopathy at follow-up. Not mentioned above, a subpleural nodule in the left base just above the hemidiaphragm is unchanged. ABDOMEN: No findings of abdominal metastasis or acute abdominal abnormality. Dictated by: Dictated on workstation # [id number]
--- NOTE | 2021-10-09 16:25 | Diagnostic Imaging Report ---
INDICATION: Lung neoplasm. TECHNIQUE: The patient was administered 26.6 mCi technetium 99m MDP intravenously and whole-body imaging was performed after a three-hour delay. FINDINGS: There is normal uptake of activity by the axial and appendicular skeleton. There is uptake by the kidneys with excretion into the urinary bladder. No suspicious focus of tracer accumulation is seen to suggest osseous metastatic disease. Postoperative changes of right shoulder replacement surgery are noted. IMPRESSION: No scintigraphic evidence of osseous metastatic disease. Dictated by: Dictated on workstation # [id number]
== END ==
LOC: CARD 12:00
PROVIDERS: ATTEND Nurse Practitioner Adult Health
DX: C34.11 Malignant neoplasm of upper lobe, right bronchus or lung (principal)
CPT/HCPCS: 71260; 74170; 78306

== ENCOUNTER 2021-11-03 12:50 | Outpatient (RCR) | payer OTHER ==
[~2021-11-03 12:50] MED LIST changes: -BARIUM SUSPENSION 2.1% (VANILLA SILQ) 450 ML PO ONE; -CATHETER FLUSH 10 ML SYR IV PRN; +DURVALUMAB IV SCH; -HOLD METFORMIN - RECEIVED CONTRAST 20 ML VIAL IV SCH; -IOHEXOL 350 MG/ML 100 ML (OMNIPAQUE 350) VIAL IV ONE; -NS 100 ML (IVPB) BAG IV ONE; +NS IV 1000 ML (CANCER CTR) 1,000 ML IV SCH; +NS IV SCH; +diphenhydrAMINE 25 MG TAB (BENADRYL) CANCER CENTER PO SCH
[2021-11-03 13:19] LABS: BASOPHILS # (AUTO) 0.1 10^3/uL (0.0-0.1); BASOPHILS % (AUTO) 1 % (0-10); EOSINOPHILS # (AUTO) 0.2 10^3/uL (0.0-0.3); EOSINOPHILS % (AUTO) 3 % (0-10); HEMATOCRIT 41 % (40-54); HEMOGLOBIN 13.7 g/dL (13.3-17.7); LYMPHOCYTES # (AUTO) 0.9 10^3/uL (1.0-4.0); LYMPHOCYTES % (AUTO) 18 % (12-44); MEAN CORPUSCULAR HEMOGLOBIN 30 pg (25-34); MEAN CORPUSCULAR HGB CONC 34 g/dL (32-36); MEAN CORPUSCULAR VOLUME 89 fL (80-99); MEAN PLATELET VOLUME 8.7 fL (9.0-12.2); MONOCYTES # (AUTO) 0.6 10^3/uL (0.0-1.0); MONOCYTES % (AUTO) 11 % (0-12); NEUTROPHILS # (AUTO) 3.2 10^3/uL (1.8-7.8); NEUTROPHILS % (AUTO) 66 % (42-75); PLATELET COUNT 245 10^3/uL (130-400); WHITE BLOOD COUNT 4.8 10^3/uL (4.3-11.0)
[2021-11-03 13:41] LABS: ALBUMIN 4.2 GM/DL (3.2-4.5); BILIRUBIN,TOTAL 0.6 MG/DL (0.1-1.0); CALCIUM 9.2 MG/DL (8.5-10.1); CREATININE SERUM 0.93 MG/DL (0.60-1.30); POTASSIUM 4.5 MMOL/L (3.6-5.0); TOTAL PROTEIN 7.6 GM/DL (6.4-8.2)
== END 2021-11-07 | disposition home or self-care (01) ==
LOC: ONC 12:50
PROVIDERS: ATTEND Internal Medicine Hematology & Oncology
DX: Z51.11 Encounter for antineoplastic chemotherapy (principal); Z45.2 Encounter for adjustment and management of vascular access device; C34.11 Malignant neoplasm of upper lobe, right bronchus or lung; D64.81 Anemia due to antineoplastic chemotherapy; K21.9 Gastro-esophageal reflux disease without esophagitis; F10.11 Alcohol abuse, in remission; F17.210 Nicotine dependence, cigarettes, uncomplicated
CPT/HCPCS: 36591; 80053; 82378; 84443; 85025; 96413

== ENCOUNTER 2021-12-01 12:46 | Outpatient (RCR) | payer OTHER ==
[2021-12-01 13:17] LABS: BASOPHILS # (AUTO) 0.1 10^3/uL (0.0-0.1); BASOPHILS % (AUTO) 1 % (0-10); EOSINOPHILS # (AUTO) 0.1 10^3/uL (0.0-0.3); EOSINOPHILS % (AUTO) 2 % (0-10); HEMATOCRIT 40 % (40-54); HEMOGLOBIN 13.5 g/dL (13.3-17.7); LYMPHOCYTES # (AUTO) 0.9 10^3/uL (1.0-4.0); LYMPHOCYTES % (AUTO) 16 % (12-44); MEAN CORPUSCULAR HEMOGLOBIN 30 pg (25-34); MEAN CORPUSCULAR HGB CONC 34 g/dL (32-36); MEAN CORPUSCULAR VOLUME 89 fL (80-99); MEAN PLATELET VOLUME 8.8 fL (9.0-12.2); MONOCYTES # (AUTO) 0.5 10^3/uL (0.0-1.0); MONOCYTES % (AUTO) 10 % (0-12); NEUTROPHILS # (AUTO) 3.8 10^3/uL (1.8-7.8); NEUTROPHILS % (AUTO) 71 % (42-75); PLATELET COUNT 235 10^3/uL (130-400); WHITE BLOOD COUNT 5.3 10^3/uL (4.3-11.0)
[2021-12-01 14:10] LABS: BILIRUBIN,TOTAL 0.5 MG/DL (0.1-1.0); CALCIUM 9.2 MG/DL (8.5-10.1); CREATININE SERUM 0.88 MG/DL (0.60-1.30); POTASSIUM 3.9 MMOL/L (3.6-5.0); TOTAL PROTEIN 7.3 GM/DL (6.4-8.2)
== END 2021-12-08 | disposition home or self-care (01) ==
LOC: ONC 12:46
PROVIDERS: ATTEND Internal Medicine Hematology & Oncology
DX: Z51.11 Encounter for antineoplastic chemotherapy (principal); C34.11 Malignant neoplasm of upper lobe, right bronchus or lung; D64.81 Anemia due to antineoplastic chemotherapy; K21.9 Gastro-esophageal reflux disease without esophagitis; F10.11 Alcohol abuse, in remission; F17.210 Nicotine dependence, cigarettes, uncomplicated
CPT/HCPCS: 36591; 80053; 84443; 85025; 96413; 99213

== ENCOUNTER 2022-01-02 13:26 | Outpatient (RCR) | payer OTHER ==
[2021-12-17 14:28] LABS: BASOPHILS % (AUTO) 1 % (0-10); EOSINOPHILS # (AUTO) 0.1 10^3/uL (0.0-0.3); EOSINOPHILS % (AUTO) 2 % (0-10); HEMATOCRIT 40 % (40-54); HEMOGLOBIN 13.6 g/dL (13.3-17.7); LYMPHOCYTES # (AUTO) 0.9 10^3/uL (1.0-4.0); LYMPHOCYTES % (AUTO) 15 % (12-44); MEAN CORPUSCULAR HEMOGLOBIN 30 pg (25-34); MEAN CORPUSCULAR HGB CONC 34 g/dL (32-36); MEAN CORPUSCULAR VOLUME 89 fL (80-99); MEAN PLATELET VOLUME 8.7 fL (9.0-12.2); MONOCYTES # (AUTO) 0.6 10^3/uL (0.0-1.0); MONOCYTES % (AUTO) 10 % (0-12); NEUTROPHILS # (AUTO) 4.3 10^3/uL (1.8-7.8); NEUTROPHILS % (AUTO) 73 % (42-75); PLATELET COUNT 248 10^3/uL (130-400); WHITE BLOOD COUNT 5.9 10^3/uL (4.3-11.0)
[2021-12-17 14:49] LABS: BILIRUBIN,TOTAL 0.7 MG/DL (0.1-1.0); CALCIUM 9.2 MG/DL (8.5-10.1); CREATININE SERUM 0.94 MG/DL (0.60-1.30); POTASSIUM 3.9 MMOL/L (3.6-5.0); TOTAL PROTEIN 7.4 GM/DL (6.4-8.2)
[2021-12-29 13:53] LABS: BASOPHILS % (AUTO) 1 % (0-10); EOSINOPHILS # (AUTO) 0.1 10^3/uL (0.0-0.3); EOSINOPHILS % (AUTO) 2 % (0-10); HEMATOCRIT 36 % (40-54); HEMOGLOBIN 12.3 g/dL (13.3-17.7); LYMPHOCYTES # (AUTO) 0.8 10^3/uL (1.0-4.0); LYMPHOCYTES % (AUTO) 15 % (12-44); MEAN CORPUSCULAR HEMOGLOBIN 30 pg (25-34); MEAN CORPUSCULAR HGB CONC 34 g/dL (32-36); MEAN CORPUSCULAR VOLUME 88 fL (80-99); MEAN PLATELET VOLUME 8.8 fL (9.0-12.2); MONOCYTES # (AUTO) 0.5 10^3/uL (0.0-1.0); MONOCYTES % (AUTO) 10 % (0-12); NEUTROPHILS # (AUTO) 3.9 10^3/uL (1.8-7.8); NEUTROPHILS % (AUTO) 72 % (42-75); PLATELET COUNT 234 10^3/uL (130-400); WHITE BLOOD COUNT 5.4 10^3/uL (4.3-11.0)
[2021-12-29 14:15] LABS: ALBUMIN 3.4 GM/DL (3.2-4.5); BILIRUBIN,TOTAL 0.4 MG/DL (0.1-1.0); CALCIUM 7.8 MG/DL (8.5-10.1); CREATININE SERUM 0.78 MG/DL (0.60-1.30); POTASSIUM 3.7 MMOL/L (3.6-5.0)
[~2022-01-02 13:26] MED LIST changes: +NS IV 500 ML (CANCER CENTER) 500 ML IV SCH
== END 2022-01-05 | disposition home or self-care (01) ==
LOC: ONC 13:26
PROVIDERS: ATTEND Internal Medicine Hematology & Oncology
DX: Z51.11 Encounter for antineoplastic chemotherapy (principal); Z45.2 Encounter for adjustment and management of vascular access device; C34.11 Malignant neoplasm of upper lobe, right bronchus or lung; D64.81 Anemia due to antineoplastic chemotherapy; K21.9 Gastro-esophageal reflux disease without esophagitis; F10.11 Alcohol abuse, in remission; F17.210 Nicotine dependence, cigarettes, uncomplicated
CPT/HCPCS: 36591; 80053; 82274; 84443; 85025; 96413; 99213

== ENCOUNTER 2022-01-28 14:33 | Outpatient (RCR) | payer OTHER ==
[2022-01-12 15:03] LABS: BASOPHILS % (AUTO) 0 % (0-10); EOSINOPHILS # (AUTO) 0.1 10^3/uL (0.0-0.3); EOSINOPHILS % (AUTO) 1 % (0-10); HEMATOCRIT 40 % (40-54); HEMOGLOBIN 13.9 g/dL (13.3-17.7); LYMPHOCYTES # (AUTO) 0.8 X 10^3 (1.0-4.0); LYMPHOCYTES % (AUTO) 13 % (12-44); MEAN CORPUSCULAR HEMOGLOBIN 30 pg (25-34); MEAN CORPUSCULAR HGB CONC 34 g/dL (32-36); MEAN CORPUSCULAR VOLUME 87 fL (80-99); MEAN PLATELET VOLUME 8.6 fL (9.0-12.2); MONOCYTES # (AUTO) 0.6 X 10^3 (0.0-1.0); MONOCYTES % (AUTO) 9 % (0-12); NEUTROPHILS # (AUTO) 4.7 X 10^3 (1.8-7.8); NEUTROPHILS % (AUTO) 76 % (42-75); PLATELET COUNT 270 10^3/uL (130-400); WHITE BLOOD COUNT 6.2 10^3/uL (4.3-11.0)
[2022-01-12 15:20] LABS: BILIRUBIN,TOTAL 0.5 MG/DL (0.1-1.0); CALCIUM 8.7 MG/DL (8.5-10.1); CREATININE SERUM 0.93 MG/DL (0.60-1.30); POTASSIUM 3.9 MMOL/L (3.6-5.0); TOTAL PROTEIN 7.2 GM/DL (6.4-8.2)
[2022-01-28 15:05] LABS: BASOPHILS % (AUTO) 1 % (0-10); EOSINOPHILS # (AUTO) 0.1 10^3/uL (0.0-0.3); EOSINOPHILS % (AUTO) 1 % (0-10); HEMATOCRIT 41 % (40-54); HEMOGLOBIN 13.9 g/dL (13.3-17.7); LYMPHOCYTES # (AUTO) 0.9 10^3/uL (1.0-4.0); LYMPHOCYTES % (AUTO) 16 % (12-44); MEAN CORPUSCULAR HEMOGLOBIN 30 pg (25-34); MEAN CORPUSCULAR HGB CONC 34 g/dL (32-36); MEAN CORPUSCULAR VOLUME 88 fL (80-99); MEAN PLATELET VOLUME 8.4 fL (9.0-12.2); MONOCYTES # (AUTO) 0.4 10^3/uL (0.0-1.0); MONOCYTES % (AUTO) 8 % (0-12); NEUTROPHILS % (AUTO) 73 % (42-75); PLATELET COUNT 294 10^3/uL (130-400); WHITE BLOOD COUNT 5.4 10^3/uL (4.3-11.0)
[2022-01-28 15:24] LABS: ALBUMIN 3.8 GM/DL (3.2-4.5); BILIRUBIN,TOTAL 0.4 MG/DL (0.1-1.0); CALCIUM 8.7 MG/DL (8.5-10.1); CREATININE SERUM 0.8 MG/DL (0.60-1.30)
== END 2022-02-05 | disposition home or self-care (01) ==
LOC: ONC 14:33
PROVIDERS: ATTEND Internal Medicine Hematology & Oncology
DX: Z51.11 Encounter for antineoplastic chemotherapy (principal); Z45.2 Encounter for adjustment and management of vascular access device; C34.11 Malignant neoplasm of upper lobe, right bronchus or lung; D64.81 Anemia due to antineoplastic chemotherapy; K21.9 Gastro-esophageal reflux disease without esophagitis; F10.11 Alcohol abuse, in remission; F17.210 Nicotine dependence, cigarettes, uncomplicated
CPT/HCPCS: 36591; 80053; 82378; 84443; 85025; 96360; 96413; 99213

== ENCOUNTER 2022-02-25 14:20 | Outpatient (RCR) | payer OTHER ==
[2022-02-11 15:13] LABS: BASOPHILS % (AUTO) 1 % (0-10); EOSINOPHILS # (AUTO) 0.1 10^3/uL (0.0-0.3); EOSINOPHILS % (AUTO) 2 % (0-10); HEMATOCRIT 41 % (40-54); HEMOGLOBIN 13.8 g/dL (13.3-17.7); LYMPHOCYTES % (AUTO) 16 % (12-44); MEAN CORPUSCULAR HEMOGLOBIN 30 pg (25-34); MEAN CORPUSCULAR HGB CONC 34 g/dL (32-36); MEAN CORPUSCULAR VOLUME 88 fL (80-99); MEAN PLATELET VOLUME 8.6 fL (9.0-12.2); MONOCYTES # (AUTO) 0.6 10^3/uL (0.0-1.0); MONOCYTES % (AUTO) 9 % (0-12); NEUTROPHILS # (AUTO) 4.4 10^3/uL (1.8-7.8); NEUTROPHILS % (AUTO) 72 % (42-75); PLATELET COUNT 256 10^3/uL (130-400); WHITE BLOOD COUNT 6.1 10^3/uL (4.3-11.0)
[2022-02-11 15:31] LABS: BILIRUBIN,TOTAL 0.5 MG/DL (0.1-1.0); CALCIUM 9.3 MG/DL (8.5-10.1); CREATININE SERUM 0.91 MG/DL (0.60-1.30); POTASSIUM 4.2 MMOL/L (3.6-5.0); TOTAL PROTEIN 7.1 GM/DL (6.4-8.2)
[~2022-02-25] VITALS: Ht 180.3 cm; Wt 88.9 kg
[~2022-02-25 14:20] MED LIST changes: +HEParin (CENTRAL IV FLUSH) 500 UNIT/5 ML SYR IV PRN; -NS IV 1000 ML (CANCER CTR) 1,000 ML IV SCH; -NS IV 500 ML (CANCER CENTER) 500 ML IV SCH; +NS IV 500 ML (CANCER CENTER) IV SCH; -diphenhydrAMINE 25 MG TAB (BENADRYL) CANCER CENTER PO SCH
[2022-02-25 14:41] LABS: BASOPHILS # (AUTO) 0.1 10^3/uL (0.0-0.1); BASOPHILS % (AUTO) 1 % (0-10); EOSINOPHILS # (AUTO) 0.1 10^3/uL (0.0-0.3); EOSINOPHILS % (AUTO) 2 % (0-10); HEMATOCRIT 46 % (40-54); HEMOGLOBIN 15.3 g/dL (13.3-17.7); LYMPHOCYTES # (AUTO) 0.9 10^3/uL (1.0-4.0); LYMPHOCYTES % (AUTO) 14 % (12-44); MEAN CORPUSCULAR HEMOGLOBIN 29 pg (25-34); MEAN CORPUSCULAR HGB CONC 33 g/dL (32-36); MEAN CORPUSCULAR VOLUME 88 fL (80-99); MEAN PLATELET VOLUME 8.8 fL (9.0-12.2); MONOCYTES # (AUTO) 0.5 10^3/uL (0.0-1.0); MONOCYTES % (AUTO) 7 % (0-12); NEUTROPHILS % (AUTO) 76 % (42-75); PLATELET COUNT 289 10^3/uL (130-400); WHITE BLOOD COUNT 6.6 10^3/uL (4.3-11.0)
[2022-02-25 15:00] LABS: ALBUMIN 4.4 GM/DL (3.2-4.5); BILIRUBIN,TOTAL 0.5 MG/DL (0.1-1.0); CALCIUM 9.6 MG/DL (8.5-10.1); CREATININE SERUM 1.03 MG/DL (0.60-1.30); POTASSIUM 4.4 MMOL/L (3.6-5.0)
== END 2022-03-07 | disposition home or self-care (01) ==
LOC: ONC 14:20
PROVIDERS: ATTEND Internal Medicine Hematology & Oncology
DX: Z51.11 Encounter for antineoplastic chemotherapy (principal); Z45.2 Encounter for adjustment and management of vascular access device; C34.11 Malignant neoplasm of upper lobe, right bronchus or lung; C78.1 Secondary malignant neoplasm of mediastinum; D64.81 Anemia due to antineoplastic chemotherapy; K21.9 Gastro-esophageal reflux disease without esophagitis; F10.11 Alcohol abuse, in remission; F17.210 Nicotine dependence, cigarettes, uncomplicated
CPT/HCPCS: 36415; 36591; 80053; 82378; 85025; 96413

== ENCOUNTER → 2022-03-23 | Outpatient (CLI) | payer OTHER ==
[~2022-03-23] MED LIST changes: -DURVALUMAB IV SCH; -HEParin (CENTRAL IV FLUSH) 500 UNIT/5 ML SYR IV PRN; -NS IV 500 ML (CANCER CENTER) IV SCH; -NS IV SCH
--- NOTE | 2022-03-23 12:35 | Diagnostic Imaging Report ---
INDICATION: Adenocarcinoma in the right upper lobe of the lung, restaging. TECHNIQUE: The serum blood glucose level at the time of injection was 93 mg/dL. The patient was administered 13.3 mCi of F-18 FDG intravenously in the right hand and PET imaging was performed from the top of the skull to the mid thighs. A noncontrast CT was also performed for attenuation correction and anatomic correlation. COMPARISON: Correlation is made with the prior PET/CT study from 01/21/2021. FINDINGS: There is normal symmetric activity throughout the brain. The soft tissues of the neck are unremarkable. The previously noted right-sided pleural effusion has nearly completely resolved. There appear to be some chronic appearing infiltrates in the right upper and right lower lobes. No mediastinal or hilar hypermetabolism is seen. No pulmonary parenchymal hypermetabolism is identified. Physiologic activity throughout the GI and tracts of the abdomen and pelvis is noted. No suspicious regions of hypermetabolism are identified. IMPRESSION: Stable PET/CT study since the examination from 01/21/2021. There are some chronic appearing infiltrates in the right upper and right lower lobes. No suspicious regions of hypermetabolism are identified. Dictated by: Dictated on workstation # [id number]
== END ==
LOC: RAD 08:42
PROVIDERS: ATTEND Internal Medicine Hematology & Oncology
DX: C34.11 Malignant neoplasm of upper lobe, right bronchus or lung (principal)

== ENCOUNTER 2022-04-03 09:51 | Outpatient (RCR) | payer OTHER ==
[2022-04-03 10:01] LABS: BASOPHILS # (AUTO) 0.1 10^3/uL (0.0-0.1); BASOPHILS % (AUTO) 1 % (0-10); EOSINOPHILS # (AUTO) 0.3 10^3/uL (0.0-0.3); EOSINOPHILS % (AUTO) 3 % (0-10); HEMATOCRIT 43 % (40-54); HEMOGLOBIN 14.5 g/dL (13.3-17.7); LYMPHOCYTES # (AUTO) 0.6 10^3/uL (1.0-4.0); LYMPHOCYTES % (AUTO) 6 % (12-44); MEAN CORPUSCULAR HEMOGLOBIN 30 pg (25-34); MEAN CORPUSCULAR HGB CONC 34 g/dL (32-36); MEAN CORPUSCULAR VOLUME 88 fL (80-99); MEAN PLATELET VOLUME 8.3 fL (9.0-12.2); MONOCYTES % (AUTO) 10 % (0-12); NEUTROPHILS % (AUTO) 81 % (42-75); PLATELET COUNT 306 10^3/uL (130-400); WHITE BLOOD COUNT 9.9 10^3/uL (4.3-11.0)
[2022-04-03 10:16] LABS: ALBUMIN 4.2 GM/DL (3.2-4.5); POTASSIUM 4.4 MMOL/L (3.6-5.0)
[2022-04-03 10:18] LABS: CALCIUM 9.5 MG/DL (8.5-10.1)
[2022-04-03 10:20] LABS: BILIRUBIN,TOTAL 0.7 MG/DL (0.1-1.0)
[2022-04-03 10:22] LABS: CREATININE SERUM 1.02 MG/DL (0.60-1.30)
== END 2022-04-07 | disposition home or self-care (01) ==
LOC: ONC 09:51
PROVIDERS: ATTEND Internal Medicine Hematology & Oncology
DX: C34.11 Malignant neoplasm of upper lobe, right bronchus or lung (principal); C78.1 Secondary malignant neoplasm of mediastinum; K21.9 Gastro-esophageal reflux disease without esophagitis; E03.9 Hypothyroidism, unspecified; D64.9 Anemia, unspecified; Z87.891 Personal history of nicotine dependence; Z86.59 Personal history of other mental and behavioral disorders; Z86.69 Personal history of other diseases of the nervous system and sense organs; Z92.21 Personal history of antineoplastic chemotherapy; Z92.3 Personal history of irradiation
CPT/HCPCS: 36415; 80053; 82378; 85025; 99213

== ENCOUNTER → 2022-07-08 | Outpatient (RCR) | payer OTHER ==
[2022-07-08 10:41] LABS: BASOPHILS # (AUTO) 0.1 10^3/uL (0.0-0.1); BASOPHILS % (AUTO) 1 % (0-10); EOSINOPHILS # (AUTO) 0.1 10^3/uL (0.0-0.3); EOSINOPHILS % (AUTO) 2 % (0-10); HEMATOCRIT 41 % (40-54); HEMOGLOBIN 13.9 g/dL (13.3-17.7); LYMPHOCYTES % (AUTO) 16 % (12-44); MEAN CORPUSCULAR HEMOGLOBIN 29 pg (25-34); MEAN CORPUSCULAR HGB CONC 34 g/dL (32-36); MEAN CORPUSCULAR VOLUME 87 fL (80-99); MEAN PLATELET VOLUME 8.9 fL (9.0-12.2); MONOCYTES # (AUTO) 0.6 10^3/uL (0.0-1.0); MONOCYTES % (AUTO) 9 % (0-12); NEUTROPHILS # (AUTO) 4.5 10^3/uL (1.8-7.8); NEUTROPHILS % (AUTO) 72 % (42-75); PLATELET COUNT 219 10^3/uL (130-400); WHITE BLOOD COUNT 6.2 10^3/uL (4.3-11.0)
[2022-07-08 11:05] LABS: ALBUMIN 4.1 GM/DL (3.2-4.5); BILIRUBIN,TOTAL 0.5 MG/DL (0.1-1.0); CALCIUM 9.4 MG/DL (8.5-10.1); CREATININE SERUM 0.91 MG/DL (0.60-1.30); POTASSIUM 4.1 MMOL/L (3.6-5.0); TOTAL PROTEIN 7.3 GM/DL (6.4-8.2)
== END | disposition home or self-care (01) ==
LOC: ONC 09:50
PROVIDERS: ATTEND Internal Medicine Hematology & Oncology
DX: C34.11 Malignant neoplasm of upper lobe, right bronchus or lung (principal); C78.1 Secondary malignant neoplasm of mediastinum; K21.9 Gastro-esophageal reflux disease without esophagitis; E03.9 Hypothyroidism, unspecified; D64.9 Anemia, unspecified; Z87.891 Personal history of nicotine dependence; Z86.59 Personal history of other mental and behavioral disorders; Z86.69 Personal history of other diseases of the nervous system and sense organs; Z92.21 Personal history of antineoplastic chemotherapy; Z92.3 Personal history of irradiation
CPT/HCPCS: 36415; 36591; 80053; 82378; 84443; 85025

== ENCOUNTER 2022-09-08 09:22 | Outpatient (RCR) | payer OTHER ==
[~2022-09-08 09:22] MED LIST changes: -CATHETER FLUSH 10 ML SYR IV PRN; -HOLD METFORMIN - RECEIVED CONTRAST 20 ML VIAL IV SCH; -IOHEXOL 350 MG/ML 100 ML (OMNIPAQUE 350) VIAL IV ONE; -NS 100 ML (IVPB) BAG IV ONE
[2022-09-08 13:31] LABS: BASOPHILS % (AUTO) 1 % (0-10); EOSINOPHILS # (AUTO) 0.2 10^3/uL (0.0-0.3); EOSINOPHILS % (AUTO) 3 % (0-10); HEMATOCRIT 43 % (40-54); HEMOGLOBIN 14.4 g/dL (13.3-17.7); LYMPHOCYTES % (AUTO) 19 % (12-44); MEAN CORPUSCULAR HEMOGLOBIN 30 pg (25-34); MEAN CORPUSCULAR HGB CONC 34 g/dL (32-36); MEAN CORPUSCULAR VOLUME 88 fL (80-99); MEAN PLATELET VOLUME 9.2 fL (9.0-12.2); MONOCYTES # (AUTO) 0.6 10^3/uL (0.0-1.0); MONOCYTES % (AUTO) 11 % (0-12); NEUTROPHILS # (AUTO) 3.5 10^3/uL (1.8-7.8); NEUTROPHILS % (AUTO) 66 % (42-75); PLATELET COUNT 271 10^3/uL (130-400); WHITE BLOOD COUNT 5.4 10^3/uL (4.3-11.0)
[2022-09-08 13:45] LABS: ALBUMIN 3.6 GM/DL (3.2-4.5); BILIRUBIN,TOTAL 0.3 MG/DL (0.1-1.0); CALCIUM 8.2 MG/DL (8.5-10.1); CREATININE SERUM 0.8 MG/DL (0.60-1.30); POTASSIUM 4.1 MMOL/L (3.6-5.0); TOTAL PROTEIN 6.5 GM/DL (6.4-8.2)
== END 2022-10-07 | disposition home or self-care (01) ==
LOC: ONC 09:22
PROVIDERS: ATTEND Internal Medicine Hematology & Oncology
DX: Z45.2 Encounter for adjustment and management of vascular access device (principal); C34.11 Malignant neoplasm of upper lobe, right bronchus or lung; C78.1 Secondary malignant neoplasm of mediastinum; K21.9 Gastro-esophageal reflux disease without esophagitis; E03.9 Hypothyroidism, unspecified; D64.9 Anemia, unspecified; Z87.891 Personal history of nicotine dependence; Z86.69 Personal history of other diseases of the nervous system and sense organs; Z92.21 Personal history of antineoplastic chemotherapy; Z92.3 Personal history of irradiation; Z87.81 Personal history of (healed) traumatic fracture
CPT/HCPCS: 36415; 36591; 80053; 82378; 84443; 85025

== ENCOUNTER → 2022-09-08 | Outpatient (CLI) | payer OTHER ==
[~2022-09-08] MED LIST changes: +CATHETER FLUSH 10 ML SYR IV PRN; +HOLD METFORMIN - RECEIVED CONTRAST 20 ML VIAL IV SCH; +IOHEXOL 350 MG/ML 100 ML (OMNIPAQUE 350) VIAL IV ONE; +NS 100 ML (IVPB) BAG IV ONE
--- NOTE | 2022-09-08 14:40 | Diagnostic Imaging Report ---
PROCEDURE: CT chest and abdomen with contrast. TECHNIQUE: Multiple contiguous axial images were obtained through the chest and abdomen after the administration of intravenous contrast. Auto Exposure Controls were utilized during the CT exam to meet ALARA standards for radiation dose reduction. INDICATION: Lung cancer. Patient just completed treatment. COMPARISON: 10/09/2021. FINDINGS: Contrast was injected. There is good opacification of the aorta and pulmonary arteries. There is mild atherosclerotic change of the aorta. There is some bronchiectasis as well as scarring in the right hilar region, consistent with previous therapy. No discrete mass or hilar adenopathy is noted. No mediastinal adenopathy. The left lung is well-aerated. There is mild chronic interstitial lung disease with some mild apical cystic subpleural changes bilaterally. No pleural effusion or pericardial effusion. The adrenal glands are not enlarged. No blastic or lytic bony changes are demonstrated. IMPRESSION: 1. Post therapy bronchiectasis and scarring in the right hilar region. 2. Obstructive interstitial lung disease with subpleural bullae noted bilaterally with an upper lobe predilection. Dictated by: Dictated on workstation # [id number]
== END ==
LOC: RAD 09:41
PROVIDERS: ATTEND Internal Medicine Hematology & Oncology
DX: J47.9 Bronchiectasis, uncomplicated (principal); J98.4 Other disorders of lung; J84.9 Interstitial pulmonary disease, unspecified; J43.9 Emphysema, unspecified; C34.11 Malignant neoplasm of upper lobe, right bronchus or lung
CPT/HCPCS: 71260; 74160

== ENCOUNTER 2022-10-08 09:21 | Outpatient (RCR) | payer OTHER | END 2022-11-07 | disposition home or self-care (01) | LOC: ONC 09:21 | PROVIDERS: ATTEND Internal Medicine Hematology & Oncology | DX: C34.11 Malignant neoplasm of upper lobe, right bronchus or lung (principal); C78.1 Secondary malignant neoplasm of mediastinum; K21.9 Gastro-esophageal reflux disease without esophagitis; E03.9 Hypothyroidism, unspecified; D64.9 Anemia, unspecified; Z87.891 Personal history of nicotine dependence; Z86.69 Personal history of other diseases of the nervous system and sense organs; Z92.21 Personal history of antineoplastic chemotherapy; Z92.3 Personal history of irradiation; Z87.81 Personal history of (healed) traumatic fracture | CPT/HCPCS: 99213 ==

== ENCOUNTER 2023-01-11 09:02 | Outpatient (RCR) | payer OTHER ==
[2023-01-11 10:18] LABS: BASOPHILS % (AUTO) 1 % (0-10); EOSINOPHILS # (AUTO) 0.1 10^3/uL (0.0-0.3); EOSINOPHILS % (AUTO) 2 % (0-10); HEMATOCRIT 41 % (40-54); HEMOGLOBIN 14.4 g/dL (13.3-17.7); LYMPHOCYTES # (AUTO) 0.9 10^3/uL (1.0-4.0); LYMPHOCYTES % (AUTO) 16 % (12-44); MEAN CORPUSCULAR HEMOGLOBIN 30 pg (25-34); MEAN CORPUSCULAR HGB CONC 35 g/dL (32-36); MEAN CORPUSCULAR VOLUME 86 fL (80-99); MEAN PLATELET VOLUME 8.6 fL (9.0-12.2); MONOCYTES # (AUTO) 0.5 10^3/uL (0.0-1.0); MONOCYTES % (AUTO) 9 % (0-12); NEUTROPHILS % (AUTO) 73 % (42-75); PLATELET COUNT 250 10^3/uL (130-400); WHITE BLOOD COUNT 5.5 10^3/uL (4.3-11.0)
[2023-01-11 10:36] LABS: ALBUMIN 4.2 GM/DL (3.2-4.5); BILIRUBIN,TOTAL 0.7 MG/DL (0.1-1.0); CALCIUM 9.4 MG/DL (8.5-10.1); CREATININE SERUM 0.89 MG/DL (0.60-1.30); TOTAL PROTEIN 7.2 GM/DL (6.4-8.2)
== END 2023-02-05 | disposition home or self-care (01) ==
LOC: ONC 09:02
PROVIDERS: ATTEND Internal Medicine Hematology & Oncology
DX: C34.11 Malignant neoplasm of upper lobe, right bronchus or lung (principal); C78.1 Secondary malignant neoplasm of mediastinum; K21.9 Gastro-esophageal reflux disease without esophagitis; E03.9 Hypothyroidism, unspecified; D64.9 Anemia, unspecified; Z87.891 Personal history of nicotine dependence; Z86.69 Personal history of other diseases of the nervous system and sense organs; Z92.21 Personal history of antineoplastic chemotherapy; Z92.3 Personal history of irradiation; Z87.81 Personal history of (healed) traumatic fracture
CPT/HCPCS: 80053; 82378; 84443; 85025

== ENCOUNTER → 2023-03-08 | Outpatient (CLI) | payer OTHER ==
[~2023-03-08] MED LIST changes: +HOLD METFORMIN - RECEIVED CONTRAST 20 ML VIAL IV SCH; +IOHEXOL 350 MG/ML 100 ML (OMNIPAQUE 350) VIAL IV ONE; +NS 100 ML (IVPB) BAG IV ONE
--- NOTE | 2023-03-08 09:39 | Diagnostic Imaging Report ---
PROCEDURE: CT chest, abdomen, and pelvis with contrast. TECHNIQUE: Multiple contiguous axial images were obtained through the chest, abdomen, and pelvis after the administration of intravenous contrast. Auto Exposure Controls were utilized during the CT exam to meet ALARA standards for radiation dose reduction. INDICATION: Lung cancer, followup. Correlation is made with prior CT from 09/08/2022. CT CHEST: A left chest wall port has the tip within the SVC. No axillary lymphadenopathy is identified. No definite mediastinal lymphadenopathy is identified. Post-therapeutic changes in the right perihilar region are again noted with right upper and right lower lobe bronchiectasis with associated fibrosis and atelectasis. Both lungs do show some centrilobular emphysematous changes. No definite hilar lymphadenopathy is seen. There is a nodule in the left lower lobe, stable at 14 mm. No other pulmonary nodules are detected. CT ABDOMEN AND PELVIS: No discrete liver mass is identified. There is a tiny stone within the gallbladder. No biliary duct dilatation is seen. Pancreas and spleen are unremarkable. No adrenal mass is identified. Kidneys are unremarkable. No calculi or hydronephrosis is seen. Aorta is calcified but nonaneurysmal. No central retroperitoneal or mesenteric lymphadenopathy is detected. Bowel loops are normal caliber. There is no obstruction. No pelvic lymphadenopathy is seen. There is no ascites. The bladder and prostate are unremarkable. Bony structures appear stable. IMPRESSION: 1. Postoperative changes in the right lung. No definite mediastinal or hilar lymphadenopathy is seen. There is a stable left lower lobe pulmonary nodule. 2. No evidence of abdominal or pelvic lymphadenopathy or metastatic disease. 3. Cholelithiasis. Dictated by: Dictated on workstation # [id number]
== END ==
LOC: RAD 08:53
PROVIDERS: ATTEND Internal Medicine Hematology & Oncology
DX: C34.11 Malignant neoplasm of upper lobe, right bronchus or lung (principal); R91.1 Solitary pulmonary nodule; K80.20 Calculus of gallbladder without cholecystitis without obstruction; Z98.890 Other specified postprocedural states
CPT/HCPCS: 71260; 74177

== ENCOUNTER 2023-03-10 11:39 | Outpatient (RCR) | payer OTHER ==
[~2023-03-10 11:39] MED LIST changes: -HOLD METFORMIN - RECEIVED CONTRAST 20 ML VIAL IV SCH; -IOHEXOL 350 MG/ML 100 ML (OMNIPAQUE 350) VIAL IV ONE; -NS 100 ML (IVPB) BAG IV ONE
[2023-03-10 11:44] LABS: BASOPHILS # (AUTO) 0.1 10^3/uL (0.0-0.1); BASOPHILS % (AUTO) 1 % (0-10); EOSINOPHILS # (AUTO) 0.1 10^3/uL (0.0-0.3); EOSINOPHILS % (AUTO) 2 % (0-10); HEMATOCRIT 44 % (40-54); HEMOGLOBIN 14.8 g/dL (13.3-17.7); LYMPHOCYTES % (AUTO) 14 % (12-44); MEAN CORPUSCULAR HEMOGLOBIN 30 pg (25-34); MEAN CORPUSCULAR HGB CONC 34 g/dL (32-36); MEAN CORPUSCULAR VOLUME 88 fL (80-99); MEAN PLATELET VOLUME 8.9 fL (9.0-12.2); MONOCYTES # (AUTO) 0.6 10^3/uL (0.0-1.0); MONOCYTES % (AUTO) 9 % (0-12); NEUTROPHILS # (AUTO) 5.2 10^3/uL (1.8-7.8); NEUTROPHILS % (AUTO) 75 % (42-75); PLATELET COUNT 240 10^3/uL (130-400)
[2023-03-10 11:46] LABS: ALBUMIN 4.5 GM/DL (3.2-4.5); BILIRUBIN,TOTAL 0.6 MG/DL (0.1-1.0); CALCIUM 8.9 MG/DL (8.5-10.1); CREATININE SERUM 0.87 MG/DL (0.60-1.30); POTASSIUM 4.2 MMOL/L (3.6-5.0); TOTAL PROTEIN 7.7 GM/DL (6.4-8.2)
== END 2023-04-07 | disposition home or self-care (01) ==
LOC: ONC 11:39
PROVIDERS: ATTEND Internal Medicine Hematology & Oncology
DX: C34.11 Malignant neoplasm of upper lobe, right bronchus or lung (principal); C78.1 Secondary malignant neoplasm of mediastinum; K21.9 Gastro-esophageal reflux disease without esophagitis; E03.9 Hypothyroidism, unspecified; H66.92 Otitis media, unspecified, left ear; D64.9 Anemia, unspecified; Z87.891 Personal history of nicotine dependence; Z86.69 Personal history of other diseases of the nervous system and sense organs; Z92.21 Personal history of antineoplastic chemotherapy; Z92.3 Personal history of irradiation; Z87.81 Personal history of (healed) traumatic fracture
CPT/HCPCS: 80053; 82378; 84443; 85025

== ENCOUNTER 2023-06-10 09:21 | Outpatient (RCR) | payer OTHER ==
[2023-06-10 09:49] LABS: BASOPHILS % (AUTO) 1 % (0-10); EOSINOPHILS # (AUTO) 0.2 10^3/uL (0.0-0.3); EOSINOPHILS % (AUTO) 5 % (0-10); HEMATOCRIT 41 % (40-54); HEMOGLOBIN 14.1 g/dL (13.3-17.7); LYMPHOCYTES # (AUTO) 0.8 10^3/uL (1.0-4.0); LYMPHOCYTES % (AUTO) 16 % (12-44); MEAN CORPUSCULAR HEMOGLOBIN 31 pg (25-34); MEAN CORPUSCULAR HGB CONC 34 g/dL (32-36); MEAN CORPUSCULAR VOLUME 89 fL (80-99); MEAN PLATELET VOLUME 9.2 fL (9.0-12.2); MONOCYTES # (AUTO) 0.5 10^3/uL (0.0-1.0); MONOCYTES % (AUTO) 11 % (0-12); NEUTROPHILS # (AUTO) 3.2 10^3/uL (1.8-7.8); NEUTROPHILS % (AUTO) 68 % (42-75); PLATELET COUNT 226 10^3/uL (130-400); WHITE BLOOD COUNT 4.8 10^3/uL (4.3-11.0)
[2023-06-10 10:01] LABS: ALBUMIN 4.1 GM/DL (3.2-4.5); POTASSIUM 3.8 MMOL/L (3.6-5.0)
[2023-06-10 10:03] LABS: TOTAL PROTEIN 7.3 GM/DL (6.4-8.2)
[2023-06-10 10:05] LABS: BILIRUBIN,TOTAL 0.4 MG/DL (0.1-1.0)
[2023-06-10 10:07] LABS: CREATININE SERUM 0.92 MG/DL (0.60-1.30)
== END 2023-07-08 | disposition home or self-care (01) ==
LOC: ONC 09:21
PROVIDERS: ATTEND Internal Medicine Hematology & Oncology
DX: Z45.2 Encounter for adjustment and management of vascular access device (principal); C34.11 Malignant neoplasm of upper lobe, right bronchus or lung
CPT/HCPCS: 36415; 36591; 80053; 82378; 84443; 85025; 99214

== ENCOUNTER → 2023-10-12 | Outpatient (CLI) | payer MEDICARE ==
[~2023-10-12] MED LIST changes: +HOLD METFORMIN - RECEIVED CONTRAST 20 ML VIAL IV SCH; +IOHEXOL 350 MG/ML 100 ML (OMNIPAQUE 350) VIAL IV ONE; +NS 100 ML (IVPB) BAG IV ONE
--- NOTE | 2023-10-12 10:15 | Diagnostic Imaging Report ---
PROCEDURE: CT chest, abdomen, and pelvis with contrast. TECHNIQUE: Multiple contiguous axial images were obtained through the chest, abdomen, and pelvis after the administration of intravenous contrast. Auto Exposure Controls were utilized during the CT exam to meet ALARA standards for radiation dose reduction. INDICATION: History of lung cancer for followup. COMPARISON: CT chest, abdomen, and pelvis of 03/08/2023. FINDINGS: CHEST: A circumscribed smoothly marginated lobulated mass in the left lower lobe just above the medial left hemidiaphragm is 1.4 cm in long axis, unchanged. Medial right lung paramediastinal fibrosis, likely on a post radiation basis, is stable. This patient has a minute amount of right pleural fluid, nonloculated. There is centrilobular emphysema, chronic. There is no lymphadenopathy. The atherosclerotic aorta is nonaneurysmal. No acute or suspicious chest wall pathology. The supraclavicular fossa and axilla are unremarkable. Central venous catheter in the SVC is stable The adrenals and liver are negative. No biliary dilatation. The spleen and pancreas are unremarkable. The unobstructed kidneys are normal. No abdominal/pelvic lymphadenopathy or omental infiltration. No ascites. No bowel, biliary, or urinary tract obstruction. No suspicious bony lesion. The atherosclerotic aorta is nonaneurysmal. There is no acute finding. IMPRESSION: 1. Stable left lower lobe lung mass and unchanged right lung paramediastinal presumed post radiation fibrosis with tiny right pleural effusion and chronic COPD. 2. Stable unremarkable abdominal/pelvic CT. Dictated by: Dictated on workstation # [id number]
== END ==
LOC: RAD 08:45
PROVIDERS: ATTEND Internal Medicine Hematology & Oncology
DX: C34.11 Malignant neoplasm of upper lobe, right bronchus or lung (principal)
CPT/HCPCS: 71260; 74177